=== PATIENT | female | born 1985 | race Two or more races ===

== ENCOUNTER → 2025-01-12 | Outpatient (CLI) | payer BC, SELFPAY ==
[2025-01-12 10:58] LABS: Basophils # (Auto) 0.1 Thou/mm3 (0.0-0.2); Basophils % (Auto) 1 % (0-2.5); Eosinophils # (Auto) 0.2 Thou/mm3 (0.0-0.5); Eosinophils % (Auto) 3 % (0-10); Hematocrit 36.9 % (36.0-46.0); Hemoglobin 12.6 g/dL (12.0-16.0); Immature Granulocytes % (Auto) 0 % (0-0); Immature Granulocytes Auto 0.02 Thou/mm3 (0.00-0.00); Lymphocytes # (Auto) 2.3 Thou/mm3 (1.0-4.8); Lymphocytes % (Auto) 31 % (10-50); Mean Corpuscular HGB Conc 34.1 g/dl (31.0-37.0); Mean Corpuscular Hemoglobin 32.1 pg (25.0-35.0); Mean Corpuscular Volume 94 fL (80-100); Monocytes # (Auto) 0.4 Thou/mm3 (0.0-0.8); Monocytes % (Auto) 6 % (0-12); Neutrophils # (Auto) 4.4 Thou/mm3 (1.8-7.7); Neutrophils % (Auto) 59 % (37-80); Nucleated Red Blood Cell % 0 /100 WBC (0); Platelet Count 222 Thou/mm3 (140-440); RDW Standard Deviation 41.5 fL (36.4-46.3); Red Blood Count 3.93 Miln/mm3 (4.00-5.20); White Blood Count 7.4 Thou/mm3 (3.6-11.0)
[2025-01-12 11:32] LABS: Glucose Estimated Average 94 mg/dL (80-131); Hemoglobin A1C 4.9 % Hgb (4.8-6.0)
[2025-01-12 11:53] LABS: Alanine Aminotransferase 22 U/L (10-49); Albumin, Serum 4.4 gm/dL (3.5-5.0); Albumin/Globulin Ratio 1.9 (1.2-2.2); Alkaline Phosphatase 59 U/L (46-116); Anion Gap 8 (7-16); Aspartate Amino Transferase 21 U/L (0-34); BUN/Creatinine Ratio 19 Ratio (12-20); Bilirubin,Total 0.7 mg/dL (0.3-1.2); Blood Urea Nitrogen 17 mg/dL (9-23); Calcium 9.7 mg/dL (8.3-10.6); Calcium (Corrected) 9.7 mg/dL (8.5-10.1); Carbon Dioxide 29.3 mMol/L (20.0-31.0); Chloride 105 mMol/L (98-107); Cholesterol 199 mg/dL (132-200); Creatinine (Component) 0.9 mg/dL (0.6-1.3); Globulin 2.3 gm/dL (2.3-3.5); Glucose 90 mg/dL (74-106); HDL Cholesterol 66 mg/dL (40-60); LDL Cholesterol,Calculated 115 mg/dL (0-130); Osmolality,Calculated 284 (275-295); Potassium 3.9 mMol/L (3.4-5.1); Sodium 142 mMol/L (136-145); Total Protein 6.7 gm/dL (5.7-8.2); Triglycerides 88 mg/dL (30-150); eGFR > 60 See Note
[2025-01-12 11:56] LABS: Vitamin D 25 Hydroxy Total 37.7 ng/mL (7.3-40.2)
== END | disposition home or self-care (01) ==
LOC: COPL 10:00
PROVIDERS: PCP Internal Medicine; Referring Provider Internal Medicine; Visit Provider Internal Medicine
DX: J30.9 Allergic rhinitis, unspecified (principal); Z83.3 Family history of diabetes mellitus; Z82.49 Family history of ischemic heart disease and other diseases of the circulatory system
CPT/HCPCS: 36415; 80053; 80061; 82306; 83036; 85025

== ENCOUNTER 2025-04-24 11:28 | Outpatient (AMB) | payer BC, SELFPAY ==
--- NOTE | 2025-04-24 11:35 | AMB.OBINITIA ---
Vital Signs 04/24/25 11:45 Height 1.68 m Height Method Stated Weight 78.528 kg Weight Measurement Method Standing Scale BMI 27.9 BP 115/72 Blood Pressure Source Automatic Cuff Blood Pressure Location Right Upper Arm Position Sitting Respiration 17 Pulse 72 Pulse Source Monitor Temp 97.7 F Temp Source Temporal Artery Scan Pulse Oximetry (%) 98 Oxygen Delivery Method Room Air Allergies/Home Meds Allergies & Medications Allergies No Known Allergies Allergy (Verified 04/24/25 11:39) Medication Reconciliation doxylamine 10 mg-pyridoxine (vit B6) 10 mg tablet,delayed release (Diclegis) 1 tab PO BID 30 days #60 tabs 04/24/25 [Rx] Intake Visit Data Collection New Patient or Established: New Patient (never been to [facility]) Reason for Visit:: OBI Seen by Clinical Staff ONLY (RN/MA): No Associate Merchant Required: No Do You Feel Safe at Home: Yes Authorities Contacted: N/A PCP or OBGYN visit in last 3 months: No Hx Now: Yes Are you currently on any form of Control: No Pain Present Currently: No Pain Scale Used: Hill-Gallagher/Numerical Pain scale:: 0 Smoking Status Smoking Status: Never smoker Questionnaires Covid-19 Vaccine Questionnaire Has patient been vacinated for Covid-19 Have you been vacinated for Covid-19: Yes PHQ-9 PHQ-2 Over the last 2 weeks, how often have you been bothered by any of the following problems? 1. Little interest or pleasure in doing things: not at all 2. Feeling down, depressed, or hopeless: not at all Total score: 0 PHQ-9 3. Trouble falling or staying asleep, or sleeping too much: Not at all 4. Feeling tired or having little energy: Not at all 5. Poor appetite or overeating: Not at all 6. Feeling bad about yourself - or that you are a failure or have let yourself or your family down: Not at all 7. Trouble concentrating on things, such as reading the newspaper or watching television: Not at all 8. Moving or speaking so slowly that other people could have noticed? - Or the opposite - being so fidgety or restless that you have been moving around a lot more than usual: not at all 9. Thoughts that you would be better off or of hurting yourself in some way: Not at all Total score: 0 If you checked off any problems, how difficult have these problems made it for you to do your work, take care of things at home, or get along with other people?: not difficult at all Source: Developed by Drs. Jaspal Samuels, Nel Ho, Angel Louise and colleagues, with an educational jean-pierre from [employer]. Depression screen completed yes Social History Living Situation History Marital Status: Life Partner Lives With: Spouse Housing: House Tobacco History Smoking Status: Never smoker Alcohol History Alcohol Intake: Former Alcohol Intake Frequency: holidays/special occasions only Domestic Abuse History Do You Feel Safe at Home: Yes History of Present Illness HPI Narrative 39 yo for OBI. LMP 02/19/25. EDC 11/28/25. IUP 9w1. sure dates. HIstory oa asthma. uses MDI. patient sees Dr Pendleton for asthma. . denies social habit. lap cholecystectomy 2021. denies any SAB symptoms. happy about . planned , FOB involved. FOB is 49 yo. 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 planned . denies SAB symptoms. + for AMA and advanced paternal age. c/o nausea, tired, no vag bleeding start diclegesis today. discomfort measure for nausea. discuss sab precaution. OB panel, NIPT and carrier screen, schedule MFM NT and anatomy screen. OBC 4 week start diclegesis today. discomfort measure for nausea. discuss sab precaution. OB panel, NIPT and carrier screen, schedule MFM NT and anatomy screen. OBC 4 week. start baby aspirin nv Menstrual History Menstrual reliability: definite Flow: normal Menstrual regularity: regular Monthly: Yes Age at menarche: 14 On control pills at conception: No OB History : 2 Para: 1 # of Living Children: 1 Delivery History 1st : Child's name: ELVA VALE date: 12/18/19 sex: female Gestational age at delivery (weeks): 39 Delivery type: vaginal weight (lbs): 3628.739 g History of depression before or after : No Infection History & Risk Evaluation History of STDs: none HIV risk evaluation: low risk Hepatitis B risk evaluation: low risk Patient or partner has history of Genital Herpes: Yes Varicella/chicken pox status: immunized Genetic Screening & History Genetic Screening/Teratology Counseling - Includes patient, baby's father, or anyone in either family with: 1. Patient's age 35 years or older as of estimated date of delivery: Yes 2. Thalassemia (Danish, [place]inean, Mediterranean, or Background); MCV less than 80: No 3. Neural Tube Defect (Meningomyelocele, Spina Bifida, or Anencephaly): No 4. Congenital Heart Defect: Yes 5. Down Syndrome: No 6. Irineo-Sachs (Ashkenazi Pentecostalism, Cajun, Sami Slovak): No 7. Diandra Disease (Ashkenazi Pentecostalism): No 8. Familial Dysautonomia (Ashkenazi Pentecostalism): No 9. Sickle Cell Disease or Trait (): No 10. Hemophilia or other blood disorders: No 11. Muscular Dystrophy: No 12. Cystic Fibrosis: No 13. Lycoming's Chorea: No 14. Mental Retardation/Autism: No 15. Other inherited genetic or chromosomal disorder: No 16. Maternal Metabolic Disorder (EG,TYPE 1 Diabetes, PKU): No 17. Patient or baby's father had a child with defects not listed above: No 18. Recurrent loss or a stillbirth: No 19. Medications (including supplements, vitamins, herbs or otc drugs)/illicit/recreational drugs/alcohol since last menstrual period: No 20. Any other: No Infection History 1. Live with someone with TB or exposed to TB: No 2. Rash or viral illness since last menstrual period: No 3. Hepatitis B,C: No Other (see comments) Source: [employer] Review of Systems Review of Systems Systems Reviewed: All systems reviewed, normal except as documented Exam General Limitations: no limitations General Appearance: alert, in no apparent distress, comfortable, cooperative, healthy appearing, well developed and well groomed Head Head exam: atraumatic, normocephalic and normal inspection Resp Respiratory exam: Present normal lung sounds bilaterally Card Cardiovascular exam: Present regular rate, normal rhythm and normal heart sounds Abdominal Abdominal exam: Present soft and normal bowel sounds Psych Psychiatric exam: Present normal affect and normal mood Office Procedures OB Clinic LOC & Office Proc's Nursing/Assessment Patient Status: Initial/New Patient OB Clinic Nursing Assessment: Medication Reconciliation, Update PMH in EMR and Vital Signs OB Clinic Coordination of Care: Complex Care and Chronic Disease 1-5, Consent,records obtained, informed consent, Education Simp Pt/Fam, Lab and Imaging orders and Staff clarify orders Special Needs: Heart tones New Patient Charge New Patient Point Assignment: [id number] New Patient Point Charge: OUTSIDE OPERATOR Level 4 ([id number]) Assessment & Plan Diagnosis / Problem List (1) Advanced maternal age (AMA) in : Status: Acute (2) Encounter for supervision of high risk in first trimester, antepartum: Status: Acute Plan discuss sab precaution, start Diclegesis bid, discuss comfort measure for nausea, hydrate. OB panel today, NIPT and carrier screen, discuss cost with patient, sched NT scan abd anatomy scan, start baby aspirin NV Additional Plan Follow Up: 4 Weeks (obc)
[2025-04-24 11:45] VITALS: BP 115/72; PULSE 72; RESP 17; TEMP 36.5; O2SAT 98; BMI 27.9
== END 2025-04-24 12:03 | disposition home or self-care (01) ==
LOC: HODSOBC 11:28
PROVIDERS: PCP Family Medicine; Referring Provider Family Medicine; Supervising Provider Advanced Practice Midwife; Visit Provider Advanced Practice Midwife
DX: O09.521 Supervision of elderly multigravida, first trimester (principal); Z3A.09 9 weeks gestation of pregnancy
CPT/HCPCS: 99204; G0463

== ENCOUNTER → 2025-04-24 | Outpatient (CLI) | payer BC, SELFPAY ==
[2025-04-24 13:22] LABS: Misc Send Out* See Sep Rpt
[2025-04-24 13:29] LABS: Collection Type, Urine Clean Catch; WBC,Urine 0 /hpf (0-5)
[2025-04-24 13:52] LABS: Basophils % (Auto) 0 % (0-2.5); Eosinophils # (Auto) 0.1 Thou/mm3 (0.0-0.5); Eosinophils % (Auto) 1 % (0-10); Hematocrit 32.8 % (36.0-46.0); Hemoglobin 11.6 g/dL (12.0-16.0); Immature Granulocytes % (Auto) 0 % (0-0); Immature Granulocytes Auto 0.02 Thou/mm3 (0.00-0.00); Lymphocytes # (Auto) 1.8 Thou/mm3 (1.0-4.8); Lymphocytes % (Auto) 19 % (10-50); Mean Corpuscular HGB Conc 35.4 g/dl (31.0-37.0); Mean Corpuscular Hemoglobin 33.3 pg (25.0-35.0); Mean Corpuscular Volume 94 fL (80-100); Monocytes # (Auto) 0.4 Thou/mm3 (0.0-0.8); Monocytes % (Auto) 5 % (0-12); Neutrophils % (Auto) 75 % (37-80); Nucleated Red Blood Cell % 0 /100 WBC (0); Platelet Count 187 Thou/mm3 (140-440); RDW Standard Deviation 43.4 fL (36.4-46.3); Red Blood Count 3.48 Miln/mm3 (4.00-5.20); White Blood Count 9.4 Thou/mm3 (3.6-11.0)
[2025-04-24 14:00] LABS: Glucose Estimated Average 91 mg/dL (80-131); Hemoglobin A1C 4.8 % Hgb (4.8-6.0)
[2025-04-24 14:09] LABS: Bacteria,Urine Rare; Bilirubin,Urine Negative (Negative); Blood,Urine Negative (Negative); Clarity,Urine Clear (Clear/Hazy); Color,Urine Colorless (Lt Yel-Yel); Culture Indicated,Urine Not Indicated; Glucose, Urine Negative (Negative); Ketones,Urine Negative (Negative); Leukocyte Esterase,Urine Negative (Negative); Nitrite,Urine Negative (Negative); Protein,Urine Negative (Neg - Trace); RBC,Urine 1 /hpf (0-3); Specific Gravity,Urine 1.008 (1.001-1.035); Squamous Epithelial Cell,Urine 1 /hpf (0-5); Urobilinogen,Urine Negative mg/dL (0.0-1.0)
[2025-04-24 14:29] LABS: Syphilis Nonreactive (Nonreactive)
[2025-04-24 14:47] LABS: Hepatitis B Surface Antigen Non Reactive (Non React); Hepatitis C Antibody Non Reactive (Non React); Rubella, IgG Antibody Reactive (Immune)
[2025-04-24 16:08] LABS: Chlamydia trachomatis PCR Negative (Not Detect); Neisseria Gonorrhoeae DNA PCR Negative (Not Detect); Trichomonas Negative (Negative)
[2025-05-01 06:54] LABS: Sm Antibody* <1.0 NEG AI (<1.0 NEGATIVE)
== END | disposition home or self-care (01) ==
PROVIDERS: PCP Family Medicine; Referring Provider Advanced Practice Midwife; Visit Provider Advanced Practice Midwife
DX: Z01.89 Encounter for other specified special examinations (principal)
CPT/HCPCS: 36415; 81001; 83036; 85025; 86235; 86762; 86780; 86803; 86850; 86900; 86901; 87340; 87491; 87591; 87661

== ENCOUNTER 2025-05-24 15:24 | Outpatient (AMB) | payer BC, SELFPAY ==
[2025-05-24 15:38] VITALS: BP 120/70; PULSE 81; RESP 16; TEMP 36.8; O2SAT 98; BMI 28.6
--- NOTE | 2025-05-24 15:38 | OBCLNT_ITS ---
Vital Signs 05/24/25 15:38 Height 1.68 m Height Method Stated Weight 80.796 kg Weight Measurement Method Standing Scale BMI 28.6 BP 120/70 Blood Pressure Source Automatic Cuff Blood Pressure Location Left Upper Arm Position Sitting Respiration 16 Pulse 81 Pulse Source Monitor Temp 98.2 F Temp Source Oral Pulse Oximetry (%) 98 Oxygen Delivery Method Room Air Allergies/Home Meds Allergies & Medications Allergies No Known Allergies Allergy (Verified 05/24/25 15:39) Medication Reconciliation doxylamine 10 mg-pyridoxine (vit B6) 10 mg tablet,delayed release (Diclegis) 1 tab PO BID 30 days #60 tabs 04/24/25 [Rx Confirmed 05/24/25] ascorbic acid (vitamin C) 1,000 mg capsule 1,000 mg PO BID #60 caps 05/24/25 [Rx] ferrous sulfate 325 mg (65 mg iron) tablet 325 mg PO BID #60 tabs 05/24/25 [Rx] Intake Visit Data Collection New Patient or Established: Established Patient (seen at [facility] within 3 years) Reason for Visit:: CARE Seen by Clinical Staff ONLY (RN/MA): No Chemical Project Engineer Required: No Do You Feel Safe at Home: Yes Authorities Contacted: N/A PCP or OBGYN visit in last 3 months: Yes Hx Now: Yes Are you currently on any form of Control: No Pain Present Currently: No Pain Scale Used: Hill-Gallagher/Numerical Pain scale:: 0 Smoking Status Smoking Status: Never smoker Questionnaires Covid-19 Vaccine Questionnaire Has patient been vacinated for Covid-19 Have you been vacinated for Covid-19: Yes PHQ-9 PHQ-2 Over the last 2 weeks, how often have you been bothered by any of the following problems? 1. Little interest or pleasure in doing things: not at all 2. Feeling down, depressed, or hopeless: not at all Total score: 0 PHQ-9 3. Trouble falling or staying asleep, or sleeping too much: Not at all 4. Feeling tired or having little energy: Not at all 5. Poor appetite or overeating: Not at all 6. Feeling bad about yourself - or that you are a failure or have let yourself or your family down: Not at all 7. Trouble concentrating on things, such as reading the newspaper or watching television: Not at all 8. Moving or speaking so slowly that other people could have noticed? - Or the opposite - being so fidgety or restless that you have been moving around a lot more than usual: not at all 9. Thoughts that you would be better off or of hurting yourself in some way: Not at all Total score: 0 Source: Developed by Drs. Jaspal Samuels, Nel Ho, Angel Louise and colleagues, with an educational jean-pierre from [employer]. Depression screen completed yes Social History Living Situation History Lives With: Spouse Housing: House Tobacco History Smoking Status: Never smoker Alcohol History Alcohol Intake: Former Alcohol Intake Frequency: holidays/special occasions only Domestic Abuse History Do You Feel Safe at Home: Yes Care OB Visit Log OB Flowsheet Initial Weight: Not Recorded Date -?-?-?-?-?-?-?-?-?-?-?-?- EGA Weight BP Alb Glu CTX Pres Fundal ht FHR Mov Dilation Station Effacement Hx Notes Visit Note 04/24/25 -?-?-?-?-?-?-?-?-?-?-?-?- 9w 1d 78.528 kg 115/72 absent unknown 9 145 absent 39 yo . planned . denies SAB symptoms. + for AMA and advanced paternal age. c/o nausea, tired, no vag bleeding start diclegesis today. discomfort measure for nausea. discuss sab precaution. OB panel, NIPT and carrier screen, schedule MFM NT and anatomy screen. OBC 4 week start diclegesis today. disc omfort measure for nausea. discuss sab precaution. OB panel, NIPT and carrier screen, schedule MFM NT and anatomy screen. OBC 4 week. start baby aspirin nv 05/24/25 -?-?-?-?-?-?-?-?-?-?-?-?- 13w 3d 80.796 kg 120/70 absent unknown 13 156 absent feels tired. history of anemia, take iron 1 daily. no sab complaints. mfm appt, 07/04 discuss sab p recaution. start iron bid with vitamin c, consider IV iron 2nd trimester, keep mfm appt 07/04. increase fluid, rtc 4 week obc ARNEL Calculator Estimated Delivery Date Method Current WG Current Estimate 11/26/25 LMP (Certain) 13w 3d Notes Visit Date: 05/24/25 Last Updated by: Nathalie Mishra CNM ob panel: AB+,abs-, rpr;;nr, rub imm, hbsag-,hiv-,hc-, GC/CT-. nipt-,sma/cf- Visit Date: 04/24/25 Last Updated by: Nathalie Mishra CNM 39 yo . LMP: 02/19/25. EDC 11/28/25 Office Procedures OB Clinic LOC & Office Proc's Nursing/Assessment Patient Status: Established Patient OB Clinic Nursing Assessment: Medication Reconciliation, Update PMH in EMR and Vital Signs OB Clinic Coordination of Care: AMA, Complex Care and Chronic Disease 1-5, Consent,records obtained, informed consent, Education Simp Pt/Fam, Lab and Imaging orders, Results/Orders obtained and Staff clarify orders Special Needs: Heart tones Established Patient Charge Established Patient Point Assignment: 155 Established Patient Point Charge: EP Level 4 (120-155) Assessment & Plan Diagnosis / Problem List (1) Encounter for supervision of high risk in first trimester, antepartum: Status: Acute (2) Advanced maternal age (AMA) in : Status: Acute Plan discuss sab precaution, hydrate, increase iron bid, start vitamin c with iron, increase iron food. keep mfm appt 07/04. rtc 4 week obc Additional Plan Follow Up: 4 Weeks (obc)
== END 2025-05-24 15:51 | disposition home or self-care (01) ==
LOC: HODSOBC 15:24
PROVIDERS: PCP Advanced Practice Midwife; Referring Provider Advanced Practice Midwife; Supervising Provider Advanced Practice Midwife; Visit Provider Advanced Practice Midwife
DX: O09.521 Supervision of elderly multigravida, first trimester (principal); O09.891 Supervision of other high risk pregnancies, first trimester; O99.011 Anemia complicating pregnancy, first trimester; Z3A.13 13 weeks gestation of pregnancy
CPT/HCPCS: 99214; G0463

== ENCOUNTER 2025-06-16 13:28 | Outpatient (AMB) | payer BC, SELFPAY ==
[2025-06-16 13:39] VITALS: BP 107/69; PULSE 80; RESP 17; TEMP 36.4; O2SAT 98; BMI 28.8
--- NOTE | 2025-06-16 13:39 | AMB.OBVISIT ---
Vital Signs 06/16/25 13:39 Height 1.68 m Height Method Measured Weight 81.42 kg Weight Measurement Method Standing Scale BMI 28.8 BP 107/69 Blood Pressure Source Automatic Cuff Blood Pressure Location Right Upper Arm Position Sitting Respiration 17 Pulse 80 Pulse Source Monitor Temp 97.6 F Temp Source Temporal Artery Scan Pulse Oximetry (%) 98 Oxygen Delivery Method Room Air Allergies/Home Meds Allergies & Medications Allergies No Known Allergies Allergy (Verified 06/16/25 13:40) Medication Reconciliation doxylamine 10 mg-pyridoxine (vit B6) 10 mg tablet,delayed release (Diclegis) 1 tab PO BID 30 days #60 tabs 04/24/25 [Rx Confirmed 06/16/25] ascorbic acid (vitamin C) 1,000 mg capsule 1,000 mg PO BID #60 caps 05/24/25 [Rx Confirmed 06/16/25] ferrous sulfate 325 mg (65 mg iron) tablet 325 mg PO BID #60 tabs 05/24/25 [Rx Confirmed 06/16/25] Intake Visit Data Collection New Patient or Established: Established Patient (seen at [facility] within 3 years) Reason for Visit:: OBC Consent obtained for Telemed Visit: No Seen by Clinical Staff ONLY (RN/MA): No Financial Analyst Intern Required: No Do You Feel Safe at Home: Yes Authorities Contacted: N/A PCP or OBGYN visit in last 3 months: Yes Date of Last PCP or OBGYN visit: 05/24/25 Hx Now: Yes Are you currently on any form of Control: No Pain Present Currently: No Pain Scale Used: Hill-Gallagher/Numerical Pain scale:: 0 Smoking Status Smoking Status: Never smoker Questionnaires Covid-19 Vaccine Questionnaire Has patient been vacinated for Covid-19 Have you been vacinated for Covid-19: No PHQ-9 PHQ-2 Over the last 2 weeks, how often have you been bothered by any of the following problems? 1. Little interest or pleasure in doing things: not at all PHQ-9 8. Moving or speaking so slowly that other people could have noticed? - Or the opposite - being so fidgety or restless that you have been moving around a lot more than usual: not at all Source: Developed by Drs. Jaspal Samuels, Nel Ho, Angel Louise and colleagues, with an educational jean-pierre from [employer]. Social History Living Situation History Lives With: Spouse Housing: House Tobacco History Smoking Status: Never smoker Alcohol History Alcohol Intake: Former Alcohol Intake Frequency: holidays/special occasions only Domestic Abuse History Do You Feel Safe at Home: Yes Care OB Visit Log OB Flowsheet Initial Weight: Not Recorded Date <del>?</del> EGA Weight BP Alb Glu CTX Pres Fundal ht FHR Mov Dilation Station Effacement Hx Notes Visit Note 04/24/25 <del>?</del> 9w 1d 78.528 kg 115/72 absent unknown 9 145 absent 39 yo . planned . denies SAB symptoms. + for AMA and advanced paternal age. c/o nausea, tired, no vag bleeding start diclegesis today. discomfort measure for nausea. discuss sab precaution. OB panel, NIPT and carrier screen, schedule MFM NT and anatomy screen. OBC 4 week start diclegesis today. discomfort measure for nausea. discuss sab precaution. OB panel, NIPT and carrier screen, schedule MFM NT and anatomy screen. OBC 4 week. start baby aspirin nv 05/24/25 <del>?</del> 13w 3d 80.796 kg 120/70 absent unknown 13 156 absent feels tired. history of anemia, take iron 1 daily. no sab complaints. mfm appt, 07/04 discuss sab precaution. start iron bid with vitamin c, consider IV iron 2nd trimester, keep mfm appt 07/04. increase fluid, rtc 4 week obc 06/16/25 <del>?</del> 16w 5d 81.42 kg 107/69 absent unknown 16 147 absent last herpes outbreak 04/02. light fm, no VB,No ROM, NO bleeding. no active lesion. question about herpes. mfm 07/04 discuss +CF screen, schedule genetic screen, advised FOB to get CF screen, start acyclovir at 36 week. vitamin C,Lysine and zinc to prevent outbreaks, discuss safe sex. patient will do AFP after insurance approval ARNEL Calculator Estimated Delivery Date Method Current WG Current Estimate 11/26/25 LMP (Certain) 16w 5d Notes Visit Date: 05/24/25 Last Updated by: Nathalie Mishra CNM ob panel: AB+,abs-, rpr;;nr, rub imm, hbsag-,hiv-,hc-, GC/CT-. nipt-,sma/cf- Visit Date: 04/24/25 Last Updated by: Nathalie Mishra CNM 39 yo . LMP: 02/19/25. EDC 11/28/25 Office Procedures OB Clinic LOC & Office Proc's Nursing/Assessment Patient Status: Established Patient OB Clinic Nursing Assessment: Medication Reconciliation, Update PMH in EMR and Vital Signs OB Clinic Coordination of Care: Complex Care and Chronic Disease 1-5, Consent,records obtained, informed consent, Education Simp Pt/Fam and Results/Orders obtained Special Needs: Heart tones Established Patient Charge Established Patient Point Assignment: 110 Established Patient Point Charge: EP Level 3 (80-115) Assessment & Plan Diagnosis / Problem List (1) Encounter for supervision of high risk in second trimester, antepartum: Status: Acute (2) Advanced maternal age (AMA) in : Status: Acute Plan Discussed cystic fibrosis positive screen today made a referral for genetics to [facility] for positive cystic fibrosis screen and advanced maternal age. I discussed comfort measures for herpes outbreak. Will start valacyclovir 400 daily at 36 weeks. Patient can take vitamin C at thousand, lysine at thousand and zinc 50 twice a day for prophylaxis. Continue prenatals. I advised patient to have her partner get screened for cystic fibrosis. Return in 4 weeks OB check
== END 2025-06-16 15:23 | disposition home or self-care (01) ==
LOC: HODSOBC 13:28
PROVIDERS: Supervising Provider Advanced Practice Midwife; Visit Provider Advanced Practice Midwife
DX: O09.522 Supervision of elderly multigravida, second trimester (principal); Z3A.16 16 weeks gestation of pregnancy; O09.892 Supervision of other high risk pregnancies, second trimester; O98.512 Other viral diseases complicating pregnancy, second trimester; B00.9 Herpesviral infection, unspecified
CPT/HCPCS: 99213; G0463

== ENCOUNTER 2025-07-24 11:06 | Outpatient (AMB) | payer BC, SELFPAY ==
[2025-07-24 11:22] VITALS: BP 103/65; PULSE 85; RESP 17; TEMP 36.4; O2SAT 98; BMI 30.2
--- NOTE | 2025-07-24 11:22 | AMB.OBVISIT ---
Vital Signs 07/24/25 11:22 Height 1.68 m Height Method Stated Weight 84.935 kg Weight Measurement Method Standing Scale BMI 30.2 BP 103/65 Blood Pressure Source Automatic Cuff Blood Pressure Location Left Upper Arm Position Sitting Respiration 17 Pulse 85 Pulse Source Monitor Temp 97.6 F Temp Source Temporal Artery Scan Pulse Oximetry (%) 98 Oxygen Delivery Method Room Air Allergies/Home Meds Allergies & Medications Allergies No Known Allergies Allergy (Verified 07/24/25 11:23) Medication Reconciliation doxylamine 10 mg-pyridoxine (vit B6) 10 mg tablet,delayed release (Diclegis) 1 tab PO BID 30 days #60 tabs 04/24/25 [Rx Confirmed 07/24/25] ascorbic acid (vitamin C) 1,000 mg capsule 1,000 mg PO BID #60 caps 05/24/25 [Rx Confirmed 07/24/25] ferrous sulfate 325 mg (65 mg iron) tablet 325 mg PO BID #60 tabs 05/24/25 [Rx Confirmed 07/24/25] Intake Visit Data Collection New Patient or Established: Established Patient (seen at [facility] within 3 years) Reason for Visit:: OBC Seen by Clinical Staff ONLY (RN/MA): No Distributor Advertising Material Required: No Do You Feel Safe at Home: Yes Authorities Contacted: N/A PCP or OBGYN visit in last 3 months: Yes Date of Last PCP or OBGYN visit: 06/16/25 Hx Now: Yes Are you currently on any form of Control: No Pain Present Currently: No Pain Scale Used: Hill-Gallagher/Numerical Pain scale:: 0 Smoking Status Smoking Status: Never smoker Questionnaires Covid-19 Vaccine Questionnaire Has patient been vacinated for Covid-19 Have you been vacinated for Covid-19: Yes PHQ-9 PHQ-2 Over the last 2 weeks, how often have you been bothered by any of the following problems? 1. Little interest or pleasure in doing things: not at all 2. Feeling down, depressed, or hopeless: not at all Total score: 0 PHQ-9 3. Trouble falling or staying asleep, or sleeping too much: Not at all 4. Feeling tired or having little energy: Not at all 5. Poor appetite or overeating: Not at all 6. Feeling bad about yourself - or that you are a failure or have let yourself or your family down: Not at all 7. Trouble concentrating on things, such as reading the newspaper or watching television: Not at all 8. Moving or speaking so slowly that other people could have noticed? - Or the opposite - being so fidgety or restless that you have been moving around a lot more than usual: not at all 9. Thoughts that you would be better off or of hurting yourself in some way: Not at all Total score: 0 If you checked off any problems, how difficult have these problems made it for you to do your work, take care of things at home, or get along with other people?: not difficult at all Source: Developed by Drs. Jaspal Samuels, Nel Ho, Angel Louise and colleagues, with an educational jean-pierre from [employer]. Depression screen completed yes Social History Living Situation History Marital Status: Lives With: Spouse Housing: House Tobacco History Smoking Status: Never smoker Second Hand Smoke Exposure: No Alcohol History Alcohol Intake: Former Alcohol Intake Frequency: holidays/special occasions only Domestic Abuse History Do You Feel Safe at Home: Yes Care OB Visit Log OB Flowsheet Initial Weight: Not Recorded Date <del>?</del> EGA Weight BP Alb Glu CTX Pres Fundal ht FHR Mov Dilation Station Effacement Hx Notes Visit Note 04/24/25 <del>?</del> 9w 1d 78.528 kg 115/72 absent unknown 9 145 absent 39 yo . planned . denies SAB symptoms. + for AMA and advanced paternal age. c/o nausea, tired, no vag bleeding start diclegesis today. discomfort measure for nausea. discuss sab precaution. OB panel, NIPT and carrier screen, schedule MFM NT and anatomy screen. OBC 4 week start diclegesis today. discomfort measure for nausea. discuss sab precaution. OB panel, NIPT and carrier screen, schedule MFM NT and anatomy screen. OBC 4 week. start baby aspirin nv 05/24/25 <del>?</del> 13w 3d 80.796 kg 120/70 absent unknown 13 156 absent feels tired. history of anemia, take iron 1 daily. no sab complaints. [facility] appt, 07/04 discuss sab precaution. start iron bid with vitamin c, consider IV iron 2nd trimester, keep [facility] appt 07/04. increase fluid, rtc 4 week obc 06/16/25 <del>?</del> 16w 5d 81.42 kg 107/69 absent unknown 16 147 absent last herpes outbreak 04/02. light fm, no VB,No ROM, NO bleeding. no active lesion. question about herpes. [facility] 07/04 discuss +CF screen, schedule genetic screen, advised FOB to get CF screen, start acyclovir at 36 week. vitamin C,Lysine and zinc to prevent outbreaks, discuss safe sex. patient will do AFP after insurance approval 07/24/25 <del>?</del> 22w 1d 84.935 kg 103/65 absent unknown 22 145 active Patient has concerns about driving 5 hours in 1 day. She reports that she drives back and forth to [place] once a month for her child to see her father. She reports that during this time she has increased back strain and tiredness because of the drive. Reports movement. Denies leaking or bleeding. No contractions at this time but she does have second trimester discomforts. Her asthma is stable and she will continue with Claudette and her Singulair. Start acyclovir at 32 weeks. Discussed comfort measures with patient. And I discussed self-help tips. Continue Claudette and Singulair for her asthma. Discussed sugary foods and sweets, diet and regular exercise. Patient has a follow-up ultrasound for growth in August. Discussed labor precautions. And third trimester labs next visit. Return in 4 weeks OB check ARNEL Calculator Estimated Delivery Date Method Current WG Current Estimate 11/26/25 Manual 22w 1d final ARNEL: 11/26/25. EFW >99% Other Estimates 11/26/25 LMP (Certain) 22w 1d 11/26/25 Ultrasound #1 22w 1d Notes Visit Date: 07/24/25 Last Updated by: Nathalie Mishra CNM 07/24: FOB screen neg for cystic fibrosis carrier 07/24: Asthma, continue Singular and Claudette Visit Date: 05/24/25 Last Updated by: Nathalie Mishra CNM ob panel: AB+,abs-, rpr;;nr, rub imm, hbsag-,hiv-,hc-, GC/CT-. nipt-,sma/cf- Visit Date: 04/24/25 Last Updated by: Nathalie Mishra CNM 39 yo . LMP: 02/19/25. EDC 11/28/25 Office Procedures OB Clinic LOC & Office Proc's Nursing/Assessment Patient Status: Established Patient OB Clinic Nursing Assessment: Medication Reconciliation, Update PMH in EMR and Vital Signs OB Clinic Coordination of Care: Complex Care and Chronic Disease 1-5, Consent,records obtained, informed consent, Education Simp Pt/Fam and Staff clarify orders Special Needs: Heart tones Established Patient Charge Established Patient Point Assignment: 115 Established Patient Point Charge: EP Level 3 (80-115) Assessment & Plan Diagnosis / Problem List (1) Advanced maternal age (AMA) in : Status: Acute (2) Encounter for supervision of high risk in second trimester, antepartum: Status: Acute Plan Follow-up growth sono in September with MFM. Discussed diet and weight gain. Increase activity. Discussed decreasing sugar and sweet foods. Comfort measures for low backache especially when driving prolonged hours. Third trimester labs next visit Additional Plan Follow Up: 4 Weeks (obc)
== END 2025-07-24 11:48 | disposition home or self-care (01) ==
LOC: HODSOBC 11:06
PROVIDERS: Supervising Provider Advanced Practice Midwife; Visit Provider Advanced Practice Midwife
DX: O09.522 Supervision of elderly multigravida, second trimester (principal); O09.892 Supervision of other high risk pregnancies, second trimester; O99.512 Diseases of the respiratory system complicating pregnancy, second trimester; J45.909 Unspecified asthma, uncomplicated; O99.891 Other specified diseases and conditions complicating pregnancy; M54.50 Low back pain, unspecified; Z3A.22 22 weeks gestation of pregnancy
CPT/HCPCS: 99213; G0463

== ENCOUNTER 2025-08-16 14:56 | Outpatient (AMB) | payer BC, SELFPAY ==
[2025-08-16 15:05] VITALS: BP 113/72; PULSE 80; RESP 16; TEMP 36.2; O2SAT 99; BMI 30.7
--- NOTE | 2025-08-16 15:05 | AMB.OBVISIT ---
Vital Signs 08/16/25 15:05 Height 1.68 m Height Method Stated Weight 86.636 kg Weight Measurement Method Standing Scale BMI 30.7 BP 113/72 Blood Pressure Source Automatic Cuff Blood Pressure Location Left Upper Arm Position Sitting Respiration 16 Pulse 80 Pulse Source Monitor Temp 97.2 F Temp Source Oral Pulse Oximetry (%) 99 Oxygen Delivery Method Room Air Allergies/Home Meds Allergies & Medications Allergies No Known Allergies Allergy (Verified 08/16/25 15:06) Medication Reconciliation doxylamine 10 mg-pyridoxine (vit B6) 10 mg tablet,delayed release (Diclegis) 1 tab PO BID 30 days #60 tabs 04/24/25 [Rx Confirmed 08/16/25] ascorbic acid (vitamin C) 1,000 mg capsule 1,000 mg PO BID #60 caps 05/24/25 [Rx Confirmed 08/16/25] ferrous sulfate 325 mg (65 mg iron) tablet 325 mg PO BID #60 tabs 05/24/25 [Rx Confirmed 08/16/25] Intake Visit Data Collection New Patient or Established: Established Patient (seen at [facility] within 3 years) Reason for Visit:: OBC Seen by Clinical Staff ONLY (RN/MA): No 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 1. Little interest or pleasure in doing things: not at all 2. Feeling down, depressed, or hopeless: not at all Total score: 0 PHQ-9 3. Trouble falling or staying asleep, or sleeping too much: Not at all 4. Feeling tired or having little energy: Not at all 5. Poor appetite or overeating: Not at all 6. Feeling bad about yourself - or that you are a failure or have let yourself or your family down: Not at all 7. Trouble concentrating on things, such as reading the newspaper or watching television: Not at all 8. Moving or speaking so slowly that other people could have noticed? - Or the opposite - being so fidgety or restless that you have been moving around a lot more than usual: not at all 9. Thoughts that you would be better off or of hurting yourself in some way: Not at all Total score: 0 If you checked off any problems, how difficult have these problems made it for you to do your work, take care of things at home, or get along with other people?: not difficult at all Source: Developed by Drs. Jaspal Samuesl, Nel Ho, Angel Louise and colleagues, with an educational jean-pierre from [employer]. Depression screen completed yes Social History Living Situation History Marital Status: Single Lives With: Spouse Housing: House Tobacco History Smoking Status: Never smoker Second Hand Smoke Exposure: No Alcohol History Alcohol Intake: Former Alcohol Intake Frequency: holidays/special occasions only Domestic Abuse History Do You Feel Safe at Home: Yes Care OB Visit Log OB Flowsheet Initial Weight: Not Recorded Date <del>?</del> EGA Weight BP Alb Glu CTX Pres Fundal ht FHR Mov Dilation Station Effacement Hx Notes Visit Note 04/24/25 <del>?</del> 9w 1d 78.528 kg 115/72 absent unknown 9 145 absent 39 yo . planned . denies SAB symptoms. + for AMA and advanced paternal age. c/o nausea, tired, no vag bleeding start diclegesis today. discomfort measure for nausea. discuss sab precaution. OB panel, NIPT and carrier screen, schedule MFM NT and anatomy screen. OBC 4 week start diclegesis today. discomfort measure for nausea. discuss sab precaution. OB panel, NIPT and carrier screen, schedule MFM NT and anatomy screen. OBC 4 week. start baby aspirin nv 05/24/25 <del>?</del> 13w 3d 80.796 kg 120/70 absent unknown 13 156 absent feels tired. history of anemia, take iron 1 daily. no sab complaints. [facility] appt, 07/04 discuss sab precaution. start iron bid with vitamin c, consider IV iron 2nd trimester, keep [facility] appt 07/04. increase fluid, rtc 4 week obc 06/16/25 <del>?</del> 16w 5d 81.42 kg 107/69 absent unknown 16 147 absent last herpes outbreak 04/02. light fm, no VB,No ROM, NO bleeding. no active lesion. question about herpes. [facility] 07/04 discuss +CF screen, schedule genetic screen, advised FOB to get CF screen, start acyclovir at 36 week. vitamin C,Lysine and zinc to prevent outbreaks, discuss safe sex. patient will do AFP after insurance approval 07/24/25 <del>?</del> 22w 1d 84.935 kg 103/65 absent unknown 22 145 active Patient has concerns about driving 5 hours in 1 day. She reports that she drives back and forth to [place] once a month for her child to see her father. She reports that during this time she has increased back strain and tiredness because of the drive. Reports movement. Denies leaking or bleeding. No contractions at this time but she does have second trimester discomforts. Her asthma is stable and she will continue with Claudette and her Singulair. Start acyclovir at 32 weeks. Discussed comfort measures with patient. And I discussed self-help tips. Continue Claudette and Singulair for her asthma. Discussed sugary foods and sweets, diet and regular exercise. Patient has a follow-up ultrasound for growth in August. Discussed labor precautions. And third trimester labs next visit. Return in 4 weeks OB check 08/16/25 <del>?</del> 25w 3d 86.636 kg 113/72 absent unknown 25 145 active Patient has concerns about her blood pressure. She feels funny sometimes lightheaded so she has been checking her blood pressure at home for the last 5 days and she is concerned that it is low. Reports good movement. Denies contractions, bleeding, leaking Discussed blood pressure with patient. Discussed parameters with patient. Discussed ER precautions. Discussed comfort measures for ligament pain. Third trimester labs with CMP and A1c. Patient has a follow-up with maternal- medicine 3. Return in 4 weeks OB check ARNEL Calculator Estimated Delivery Date Method Current WG Current Estimate 11/26/25 LMP (Certain) 25w 3d Other Estimates 11/26/25 Ultrasound #1 25w 3d 11/26/25 Manual 25w 3d final ARNEL: 11/26/25. EFW >99% Notes Visit Date: 07/24/25 Last Updated by: Nathalie Mishra CNM 07/24: FOB screen neg for cystic fibrosis carrier 07/24: Asthma, continue Singular and Claudette Visit Date: 05/24/25 Last Updated by: Nathalie Mishra CNM ob panel: AB+,abs-, rpr;;nr, rub imm, hbsag-,hiv-,hc-, GC/CT-. nipt-,sma/cf- Visit Date: 04/24/25 Last Updated by: Nathalie Mishra CNM 39 yo . LMP: 02/19/25. EDC 11/28/25 Office Procedures OBC Clinic LOC & Office Proc's Nursing/Assessment Patient Status: Established Patient OB Clinic Nursing Assessment: Medication Reconciliation, Update PMH in EMR and Vital Signs OB Clinic Coordination of Care: Education Complex Pt/Fam, Education Simp Pt/Fam, Lab and Imaging orders, Results/Orders obtained and Staff clarify orders Special Needs: Heart tones Established Patient Charge Established Patient Point Assignment: 125 Established Patient Point Charge: EP Level 4 (120-155) Assessment & Plan Diagnosis / Problem List (1) Encounter for supervision of high risk in second trimester, antepartum: Status: Acute Plan Follow-up [facility] appointment . Third trimester labs with CMP and CBC today. Discussed labor precautions. Increase fluids. Increase proteins. Discussed parameters for blood pressure and ER precautions. Return in 3 weeks OB check Additional Plan Follow Up: 3 Weeks (obc)
== END 2025-08-16 15:26 | disposition home or self-care (01) ==
LOC: HODSOBC 14:56
PROVIDERS: Supervising Provider Advanced Practice Midwife; Visit Provider Advanced Practice Midwife
DX: O09.522 Supervision of elderly multigravida, second trimester (principal); Z3A.25 25 weeks gestation of pregnancy
CPT/HCPCS: 99214; G0463

== ENCOUNTER → 2025-08-18 | Outpatient (CLI) | payer BC, SELFPAY ==
[2025-08-18 11:32] LABS: Basophils # (Auto) 0.0 Thou/mm3 (0.0-0.2); Basophils % (Auto) 0 % (0-2.5); Eosinophils # (Auto) 0.1 Thou/mm3 (0.0-0.5); Eosinophils % (Auto) 1 % (0-10); Hematocrit 31.5 % (36.0-46.0); Hemoglobin 10.8 g/dL (12.0-16.0); Immature Granulocytes Auto 0.06 Thou/mm3 (0.00-0.00); Lymphocytes # (Auto) 1.7 Thou/mm3 (1.0-4.8); Lymphocytes % (Auto) 22 % (10-50); Mean Corpuscular HGB Conc 34.3 g/dl (31.0-37.0); Mean Corpuscular Hemoglobin 33.5 pg (25.0-35.0); Mean Corpuscular Volume 98 fL (80-100); Monocytes # (Auto) 0.3 Thou/mm3 (0.0-0.8); Monocytes % (Auto) 4 % (0-12); Neutrophils # (Auto) 5.4 Thou/mm3 (1.8-7.7); Neutrophils % (Auto) 71 % (37-80); Nucleated Red Blood Cell # 0.00 Thou/mm3 (0.00-0.00); Nucleated Red Blood Cell % 0 /100 WBC (0); Platelet Count 200 Thou/mm3 (140-440); RDW Standard Deviation 43.1 fL (36.4-46.3); Red Blood Count 3.22 Miln/mm3 (4.00-5.20); White Blood Count 7.6 Thou/mm3 (3.6-11.0)
[2025-08-18 11:40] LABS: Glucose Estimated Average 91 mg/dL (80-131); Hemoglobin A1C 4.8 % Hgb (4.8-6.0)
[2025-08-18 11:53] LABS: Alanine Aminotransferase 10 U/L (10-49); Albumin, Serum 4.0 gm/dL (3.5-5.0); Albumin/Globulin Ratio 1.9 (1.2-2.2); Alkaline Phosphatase 54 U/L (46-116); Anion Gap 11 (7-16); Aspartate Amino Transferase 12 U/L (0-34); BUN/Creatinine Ratio 13 Ratio (12-20); Bilirubin,Total 0.5 mg/dL (0.3-1.2); Blood Urea Nitrogen 9 mg/dL (9-23); Calcium 9.2 mg/dL (8.3-10.6); Calcium (Corrected) 9.2 mg/dL (8.5-10.1); Carbon Dioxide 25.2 mMol/L (20.0-31.0); Chloride 105 mMol/L (98-107); Creatinine (Component) 0.7 mg/dL (0.6-1.3); Globulin 2.1 gm/dL (2.3-3.5); Glucose 151 mg/dL (74-106); Glucose,1 Hour PP 50gm Dose 151 mg/dL (80-140); Osmolality,Calculated 282 (275-295); Potassium 3.5 mMol/L (3.4-5.1); Sodium 141 mMol/L (136-145); Total Protein 6.1 gm/dL (5.7-8.2); eGFR > 60 See Note
[2025-08-18 12:01] LABS: Syphilis Nonreactive (Nonreactive)
== END | disposition home or self-care (01) ==
PROVIDERS: PCP Family Medicine; Referring Provider Advanced Practice Midwife; Visit Provider Advanced Practice Midwife
DX: Z34.92 Encounter for supervision of normal pregnancy, unspecified, second trimester (principal)
CPT/HCPCS: 36415; 80053; 82950; 83036; 85025; 86780

== ENCOUNTER 2025-09-12 14:29 | Outpatient (AMB) | payer BC, SELFPAY ==
[2025-09-12 14:40] VITALS: BP 115/70; PULSE 112; RESP 18; TEMP 36.2; O2SAT 98; BMI 31.4
--- NOTE | 2025-09-12 14:40 | AMB.OBVISIT ---
Vital Signs 09/12/25 14:40 Height 1.68 m Height Method Stated Weight 88.621 kg Weight Measurement Method Standing Scale BMI 31.4 BP 115/70 Blood Pressure Source Automatic Cuff Blood Pressure Location Left Upper Arm Position Sitting Respiration 18 Pulse 112 H Pulse Source Monitor Temp 97.2 F Temp Source Oral Pulse Oximetry (%) 98 Oxygen Delivery Method Room Air Allergies/Home Meds Allergies & Medications Allergies No Known Allergies Allergy (Verified 09/12/25 14:41) Medication Reconciliation doxylamine 10 mg-pyridoxine (vit B6) 10 mg tablet,delayed release (Diclegis) 1 tab PO BID 30 days #60 tabs 04/24/25 [Rx Confirmed 09/12/25] ascorbic acid (vitamin C) 1,000 mg capsule 1,000 mg PO BID #60 caps 05/24/25 [Rx Confirmed 09/12/25] ferrous sulfate 325 mg (65 mg iron) tablet 325 mg PO BID #60 tabs 05/24/25 [Rx Confirmed 09/12/25] valacyclovir 500 mg tablet (Valtrex) 500 mg PO BID #30 tabs 09/12/25 [Rx] Intake Visit Data Collection New Patient or Established: Established Patient (seen at [facility] within 3 years) Reason for Visit:: OBC Seen by Clinical Staff ONLY (RN/MA): No 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: No Do You Feel Safe at Home: Yes Authorities Contacted: N/A PCP or OBGYN visit in last 3 months: Yes Date of Last PCP or OBGYN visit: 08/16/25 Hx Now: Yes Are you currently on any form of Control: No Pain Present Currently: No Pain Scale Used: Hill-Gallagher/Numerical Pain scale:: 0 Smoking Status Smoking Status: Never smoker Immunizations Flu Vaccine in the Last 12 Months: No Flu Vaccine Exclusion Criteria: No Exclusion Criteria Questionnaires Covid-19 Vaccine Questionnaire Has patient been vacinated for Covid-19 Have you been vacinated for Covid-19: No PHQ-9 PHQ-2 Over the last 2 weeks, how often have you been bothered by any of the following problems? 1. Little interest or pleasure in doing things: not at all 2. Feeling down, depressed, or hopeless: not at all Total score: 0 PHQ-9 3. Trouble falling or staying asleep, or sleeping too much: Not at all 4. Feeling tired or having little energy: Not at all 5. Poor appetite or overeating: Not at all 6. Feeling bad about yourself - or that you are a failure or have let yourself or your family down: Not at all 7. Trouble concentrating on things, such as reading the newspaper or watching television: Not at all 8. Moving or speaking so slowly that other people could have noticed? - Or the opposite - being so fidgety or restless that you have been moving around a lot more than usual: not at all 9. Thoughts that you would be better off or of hurting yourself in some way: Not at all Total score: 0 If you checked off any problems, how difficult have these problems made it for you to do your work, take care of things at home, or get along with other people?: not difficult at all Source: Developed by Drs. Jaspal Samuels, Nel Ho, Angel Louise and colleagues, with an educational jean-pierre from [employer]. Depression screen completed yes Social History Living Situation History Marital Status: Single Lives With: Spouse Housing: House Tobacco History Smoking Status: Never smoker Second Hand Smoke Exposure: No Alcohol History Alcohol Intake: Former Alcohol Intake Frequency: holidays/special occasions only Domestic Abuse History Do You Feel Safe at Home: Yes Care OB Visit Log OB Flowsheet Initial Weight: Not Recorded Date <del>?</del> EGA Weight BP Alb Glu CTX Pres Fundal ht FHR Mov Dilation Station Effacement Hx Notes Visit Note 04/24/25 <del>?</del> 9w 1d 78.528 kg 115/72 absent unknown 9 145 absent 39 yo . planned . denies SAB symptoms. + for AMA and advanced paternal age. c/o nausea, tired, no vag bleeding start diclegesis today. discomfort measure for nausea. discuss sab precaution. OB panel, NIPT and carrier screen, schedule MFM NT and anatomy screen. OBC 4 week start diclegesis today. discomfort measure for nausea. discuss sab precaution. OB panel, NIPT and carrier screen, schedule MFM NT and anatomy screen. OBC 4 week. start baby aspirin nv 05/24/25 <del>?</del> 13w 3d 80.796 kg 120/70 absent unknown 13 156 absent feels tired. history of anemia, take iron 1 daily. no sab complaints. [facility] app[facility], 07/04 discuss sab precaution. start iron bid with vitamin c, consider IV iron 2nd trimester, keep mfm appt 07/04. increase fluid, rtc 4 week obc 06/16/25 <del>?</del> 16w 5d 81.42 kg 107/69 absent unknown 16 147 absent last herpes outbreak 04/02. light fm, no VB,No ROM, NO bleeding. no active lesion. question about herpes. [facility] 07/04 discuss +CF screen, schedule genetic screen, advised FOB to get CF screen, start acyclovir at 36 week. vitamin C,Lysine and zinc to prevent outbreaks, discuss safe sex. patient will do AFP after insurance approval 07/24/25 <del>?</del> 22w 1d 84.935 kg 103/65 absent unknown 22 145 active Patient has concerns about driving 5 hours in 1 day. She reports that she drives back and forth to [facility] once a month for her child to see her father. She reports that during this time she has increased back strain and tiredness because of the drive. Reports movement. Denies leaking or bleeding. No contractions at this time but she does have second trimester discomforts. Her asthma is stable and she will continue with Claudette and her Singulair. Start acyclovir at 32 weeks. Discussed comfort measures with patient. And I discussed self-help tips. Continue Claudette and Singulair for her asthma. Discussed sugary foods and sweets, diet and regular exercise. Patient has a follow-up ultrasound for growth in August. Discussed labor precautions. And third trimester labs next visit. Return in 4 weeks OB check 08/16/25 <del>?</del> 25w 3d 86.636 kg 113/72 absent unknown 25 145 active Patient has concerns about her blood pressure. She feels funny sometimes lightheaded so she has been checking her blood pressure at home for the last 5 days and she is concerned that it is low. Reports good movement. Denies contractions, bleeding, leaking Discussed blood pressure with patient. Discussed parameters with patient. Discussed ER precautions. Discussed comfort measures for ligament pain. Third trimester labs with CMP and A1c. Patient has a follow-up with maternal- medicine 11 3. Return in 4 weeks OB check 09/12/25 <del>?</del> 29w 2d 88.621 kg 115/70 absent cephalic 29 145 active MFM appointment today. Patient's 1 hour GTT was 151. Reports movement. Denies leaking bleeding or contractions. Patient reports increased stress at work due to a project she was working on. And that she is having a herpes breakout. She continues to take lysine vitamin C and zinc. Ordered 3-hour GTT. Hemoglobin A1c. Valtrex 500 p.o. twice daily. Discussed safe sex and condom use. Discussed labor precautions. I reviewed Tdap with patient she will decide next visit. Return in 3 weeks OB check ARNEL Calculator Estimated Delivery Date Method Current WG Current Estimate 11/26/25 LMP (Certain) 29w 2d Other Estimates 11/26/25 Ultrasound #1 29w 2d 11/26/25 Manual 29w 2d final ARNEL: 11/26/25. EFW >99% Notes Visit Date: 09/12/25 Last Updated by: Nathalie Mishra CNM 1hr gtt: 151. 09/12/25: herpes out break. start valtrex today, 3 hr gtt at [facility] Visit Date: 07/24/25 Last Updated by: Nathalie Mishra CNM 07/24: FOB screen neg for cystic fibrosis carrier 07/24: Asthma, continue Singular and Claudette Visit Date: 05/24/25 Last Updated by: Nathalie Mishra CNM ob panel: AB+,abs-, rpr;;nr, rub imm, hbsag-,hiv-,hc-, GC/CT-. nipt-,sma/cf- Visit Date: 04/24/25 Last Updated by: Nathalie Mishra CNM 39 yo . LMP: 02/19/25. EDC 11/28/25 Office Procedures OBC Clinic LOC & Office Proc's Nursing/Assessment Patient Status: Established Patient OB Clinic Nursing Assessment: Medication Reconciliation, Update PMH in EMR and Vital Signs OB Clinic Coordination of Care: Consent,records obtained, informed consent, Education Simp Pt/Fam, Lab and Imaging orders, Results/Orders obtained and Staff clarify orders Special Needs: Heart tones Established Patient Charge Established Patient Point Assignment: 110 Established Patient Point Charge: EP Level 3 (80-115) Assessment & Plan Diagnosis / Problem List (1) Diet controlled gestational diabetes mellitus (GDM) in third trimester: Status: Acute (2) Encounter for supervision of high risk in third trimester, antepartum: Status: Acute Plan Herpes outbreak today. Start Valtrex 500 twice daily. Patient will continue until . Continue vitamin C lysine and zinc. Try to reduce stresses. Discussed labor precautions. I discussed Tdap with patient and she will make a decision next visit. Maternal- medicine ultrasound was done today. 3-hour GTT and A1c at [facility]. Comfort measures for cough and cold. Return in 3 weeks OB to Additional Plan Follow Up: 3 Weeks (obc)
== END 2025-09-12 15:27 | disposition home or self-care (01) ==
LOC: HODSOBC 14:29
PROVIDERS: Supervising Provider Advanced Practice Midwife; Visit Provider Advanced Practice Midwife
DX: O09.893 Supervision of other high risk pregnancies, third trimester (principal); O24.410 Gestational diabetes mellitus in pregnancy, diet controlled; O98.513 Other viral diseases complicating pregnancy, third trimester; B00.9 Herpesviral infection, unspecified; O09.523 Supervision of elderly multigravida, third trimester; Z3A.29 29 weeks gestation of pregnancy
CPT/HCPCS: 99213; G0463

== ENCOUNTER → 2025-09-12 | Outpatient (CLI) | payer BC, SELFPAY ==
[2025-09-12 13:57] LABS: Basophils # (Auto) 0.0 Thou/mm3 (0.0-0.2); Basophils % (Auto) 0 % (0-2.5); Eosinophils # (Auto) 0.2 Thou/mm3 (0.0-0.5); Eosinophils % (Auto) 2 % (0-10); Hematocrit 29.9 % (36.0-46.0); Hemoglobin 10.3 g/dL (12.0-16.0); Immature Granulocytes Auto 0.07 Thou/mm3 (0.00-0.00); Lymphocytes # (Auto) 1.2 Thou/mm3 (1.0-4.8); Lymphocytes % (Auto) 16 % (10-50); Mean Corpuscular HGB Conc 34.4 g/dl (31.0-37.0); Mean Corpuscular Hemoglobin 34.0 pg (25.0-35.0); Mean Corpuscular Volume 99 fL (80-100); Monocytes # (Auto) 0.5 Thou/mm3 (0.0-0.8); Monocytes % (Auto) 6 % (0-12); Neutrophils # (Auto) 5.8 Thou/mm3 (1.8-7.7); Neutrophils % (Auto) 75 % (37-80); Nucleated Red Blood Cell # 0.00 Thou/mm3 (0.00-0.00); Nucleated Red Blood Cell % 0 /100 WBC (0); Platelet Count 180 Thou/mm3 (140-440); RDW Standard Deviation 43.1 fL (36.4-46.3); Red Blood Count 3.03 Miln/mm3 (4.00-5.20); White Blood Count 7.8 Thou/mm3 (3.6-11.0)
[2025-09-12 14:12] LABS: C-Reactive Protein 1.6 mg/dL (0.0-0.9); Free T4 (Free Thyroxine) 1.16 ng/dL (0.89-1.76); Thyroid Stimulating Hormone 0.94 uIU/mL (0.55-4.78)
[2025-09-12 14:18] LABS: Iron 49 mcg/dL (50-170); Percent Iron Saturation 12 % (20-55); Total Iron Binding Capacity 385 mcg/dL (250-425); Unsaturated Iron Binding 336 (225-295)
[2025-09-20 07:36] LABS: T3,Total* 146 ng/dL (76-181); Thyroid Peroxidase Antibodies* 156 IU/mL (<9)
== END | disposition home or self-care (01) ==
LOC: COPL 11:33
PROVIDERS: PCP Family Medicine; Referring Provider Nurse Practitioner Family; Visit Provider Nurse Practitioner Family
DX: E06.3 Autoimmune thyroiditis (principal); D50.9 Iron deficiency anemia, unspecified
CPT/HCPCS: 36415; 83540; 83550; 84439; 84443; 84480; 85025; 86140; 86376

== ENCOUNTER → 2025-09-20 | Outpatient (CLI) | payer BC, SELFPAY ==
[2025-09-20 08:48] LABS: Glucose Estimated Average 97 mg/dL (80-131); Hemoglobin A1C 5.0 % Hgb (4.8-6.0)
== END | disposition home or self-care (01) ==
LOC: COPL 07:03
PROVIDERS: PCP Family Medicine; Referring Provider Advanced Practice Midwife; Visit Provider Advanced Practice Midwife
DX: O09.93 Supervision of high risk pregnancy, unspecified, third trimester (principal); O24.410 Gestational diabetes mellitus in pregnancy, diet controlled
CPT/HCPCS: 36415; 82951; 82952; 83036

== ENCOUNTER → 2025-09-22 | Outpatient (CLI) | payer BC, SELFPAY ==
[2025-09-22 08:36] LABS: Glucose Estimated Average 97 mg/dL (80-131); Hemoglobin A1C 5.0 % Hgb (4.8-6.0)
[2025-09-22 08:48] LABS: Glucose, Fasting 92 mg/dL (74-106)
[2025-09-22 08:54] LABS: Glucose 1/2 Hour 157 mg/dL (110-170)
[2025-09-22 09:47] LABS: Glucose 1 Hour 159 mg/dL (120-170)
[2025-09-22 10:51] LABS: Glucose 2 Hour 132 mg/dL (70-120)
[2025-09-22 12:08] LABS: Glucose 3 Hour 102 mg/dL (70-120)
== END | disposition home or self-care (01) ==
LOC: COPL 07:02
PROVIDERS: PCP Family Medicine; Referring Provider Advanced Practice Midwife; Visit Provider Advanced Practice Midwife
DX: O24.410 Gestational diabetes mellitus in pregnancy, diet controlled (principal); O09.93 Supervision of high risk pregnancy, unspecified, third trimester
CPT/HCPCS: 36415; 82951; 82952; 83036

== ENCOUNTER 2025-09-28 11:24 | Outpatient (AMB) | payer BC, SELFPAY ==
[2025-09-28 11:29] VITALS: BP 101/68; PULSE 86; RESP 18; TEMP 36.3; O2SAT 98; BMI 30.9
--- NOTE | 2025-09-28 11:29 | OBCLNT_ITS ---
Vital Signs 09/28/25 11:29 Height 1.68 m Height Method Stated Weight 87.317 kg Weight Measurement Method Standing Scale BMI 30.9 BP 101/68 Blood Pressure Source Automatic Cuff Blood Pressure Location Right Upper Arm Position Sitting Respiration 18 Pulse 86 Pulse Source Monitor Temp 97.3 F Temp Source Temporal Artery Scan Pulse Oximetry (%) 98 Oxygen Delivery Method Room Air Allergies/Home Meds Allergies & Medications Allergies No Known Allergies Allergy (Verified 09/28/25 11:29) Medication Reconciliation doxylamine 10 mg-pyridoxine (vit B6) 10 mg tablet,delayed release (Diclegis) 1 tab PO BID 30 days #60 tabs 04/24/25 [Rx Confirmed 09/28/25] ascorbic acid (vitamin C) 1,000 mg capsule 1,000 mg PO BID #60 caps 05/24/25 [Rx Confirmed 09/28/25] ferrous sulfate 325 mg (65 mg iron) tablet 325 mg PO BID #60 tabs 05/24/25 [Rx Confirmed 09/28/25] valacyclovir 500 mg tablet (Valtrex) 500 mg PO BID #30 tabs 09/12/25 [Rx Confirmed 09/28/25] hydrocortisone 2.5 % topical cream with perineal applicator (Proctosol HC) 1 applic DC QD-BID PRN hemorrhoids #30 grams 09/28/25 [Rx] Immunizations Immunizations Flu Vaccine in the Last 12 Months: No Flu Vaccine Exclusion Criteria: Refused by Patient Care OB Visit Log OB Flowsheet Initial Weight: Not Recorded Date -?-?-?-?-?-?-?-?-?-?-?-?- EGA Weight BP Alb Glu CTX Pres Fundal ht FHR Mov Dilation Station Effacement Hx Notes Visit Note 04/24/25 -?-?-?-?-?-?-?-?-?-?-?-?- 9w 1d 78.528 kg 115/72 absent unknown 9 145 absent 39 yo . planned . denies SAB symptoms. + for AMA and advanced paternal age. c/o nausea, tired, no vag bleeding start diclegesis today. discomfort measure for nausea. discuss sab precaution. OB panel, NIPT and carrier screen, schedule MFM NT and anatomy screen. OBC 4 week start diclegesis today. disc omfort measure for nausea. discuss sab precaution. OB panel, NIPT and carrier screen, schedule MFM NT and anatomy screen. OBC 4 week. start baby aspirin nv 05/24/25 -?-?-?-?-?-?-?-?-?-?-?-?- 13w 3d 80.796 kg 120/70 absent unknown 13 156 absent feels tired. history of anemia, take iron 1 daily. no sab complaints. mfm appt, 07/04 discuss sab precaution. start iron bid with vitamin c, consider IV iron 2nd trimester, keep mfm appt 07/04. increase fluid, rtc 4 week obc 06/16/25 -?-?-?-?-?-?-?-?-?-?-?-?- 16w 5d 81.42 kg 107/69 absent unknown 16 147 absent last herpes outbreak 04/02. light fm, no VB,No ROM, NO bleeding. no active lesion. question about herpes. mfm 07/04 discuss +CF scr een, schedule genetic screen, advised FOB to get CF screen, start acyclovir at 36 week. vitamin C,Lysine and zinc to prevent outbreaks, discuss safe sex. patient will do AFP after insurance approval 07/24/25 -?-?-?-?-?-?-?-?-?-?-?-?- 22w 1d 84.935 kg 103/65 absent unknown 22 145 active Patient has concerns about driving 5 hours in 1 day. She reports that she drives back and forth to [facility] once a month for her child to see her father. She reports that during this time she has increased back strain and tiredness because of the drive. Reports movement. Denies leaking or bleeding. No contractions at this time but she does have second trimester discomforts. Her asthma is stable and she will continue with Claudette and her Singulair. Start acyclovir at 32 weeks. Discussed comfor t measures with patient. And I discussed self-help tips. Continue Claudette and Singulair for her asthma. Discussed sugary foods and sweets, diet and regular exercise. Patient has a follow-up ultrasound for growth in August. Discussed labor precautions. And third trimester labs next visit. Return in 4 weeks OB check 08/16/25 -?-?-?-?-?-?-?-?-?-?-?-?- 25w 3d 86.636 kg 113/72 absent unknown 25 145 active Patient has concerns about her blood pressure. She feels funny sometimes lightheaded so she has been checking her blood pressure at home for the last 5 days and she is concerned that it is low. Reports good movement. Denies contractions, bleeding, leaking Discussed blood pressure with patient. Discussed parameters with patient. Discussed ER precautions. Discussed comfort measures for ligament pain. Third trimester labs with CMP and A1c. Patient has a follow-up with maternal- medicine 11 3. Return in 4 weeks OB check 09/12/25 -?-?-?-?-?-?-?-?-?-?-?-?- 29w 2d 88.621 kg 115/70 absent cephalic 29 145 active MFM appointment today. Patient's 1 hour GTT was 151. Reports movement. Denies leaking bleeding or contractions. Patient reports increased stress at work due to a project she was working on. And that she is having a herpes breakout. She continues to take lysine vitamin C and zinc. Ordered 3-hour GTT. Hemoglobin A1c. Valtrex 500 p.o. twice daily. Discussed safe sex and condom use. Discussed labor precautions. I reviewed Tdap with patient she will decide next visit. Return in 3 weeks OB check 09/28/25 -?-?-?-?-?-?-?-?-?-?-?-?- 31w 4d 87.317 kg 101/68 absent cephalic 30 145 active Reports good movement. Denies leaking, bleeding, contractions. Patient works at home for [employer]. She was very tearful and wanted to discuss her health prior to patient . Patient reports that in May she went to [place] to see HEAD OF ADVERTISING/surgeon because she was not feeling right she was tired all the time she was gaining weight she just did not feel right. Lab work was done and the surgeon told her she was anemic so she received an iron transfusion. Patient then scheduled with her primary care here in [place] and labs were drawn. Her labs showed normal anemia workup and her CHEM panel was normal or her H&H was 11/32. So patient states she does not feel tired or weak but she still concerned that her hemoglobin is 10/29. Patient also was concerned that after her last baby she had problems with hemorrhoids and had to have one of them excised. And she did not want to go through hemorrhoid pain again. She also was concerned that she had a lot of discomfort because of an episiotomy and is requesting an elective . Hemoglobinopathy panel ordered. I scheduled patient with [facility] to discuss elective . Discussed comfort measures for hemorrhoids such as increased fiber, Tucks and I prescribed Proctosol that she could place twice daily. I asked her to make an appointment with her primary care about anemia and inform her primary care that I did order some lab work to check for hemoglobinopathies. Discussed labor precautions. Kick count. And Tdap today. I also discussed her 3-hour GTT there was 1 value that was high the others were at range. And I discussed diet and weight gain ARNEL Calculator Estimated Delivery Date Method Current WG Current Estimate 11/26/25 LMP (Certain) 31w 4d Other Estimates 11/26/25 Ultrasound #1 31w 4d 11/26/25 Manual 31w 4d final ARNEL: 11/26. EFW >99% Notes Visit Date: 09/12/25 Last Updated by: Nathalie Mishra CNM 1hr gtt: 151. 09/12/25: herpes out break. start valtrex today, 3 hr gtt at MOB Visit Date: 07/24/25 Last Updated by: Nathalie Mishra CNM 07/24: FOB screen neg for cystic fibrosis carrier 07/24: Asthma, continue Singular and Claudette Visit Date: 05/24/25 Last Updated by: Nathalie Mishra CNM ob panel: AB+,abs-, rpr;;nr, rub imm, hbsag-,hiv-,hc-, GC/CT-. nipt-,sma/cf- Visit Date: 04/24/25 Last Updated by: Nathalie Mishra CNM 39 yo . LMP: 02/19/25. EDC 11/28/25 Office Procedures OBC Clinic LOC & Office Proc's Nursing/Assessment Patient Status: Established Patient OB Clinic Nursing Assessment: Medication Reconciliation, Update PMH in EMR and Vital Signs OB Clinic Coordination of Care: Complex Care and Chronic Disease 1-5, Education Complex Pt/Fam, Consent,records obtained, informed consent, Lab and Imaging orders, Results/Orders obtained and Staff clarify orders Special Needs: Heart tones Established Patient Charge Established Patient Point Assignment: 140 Established Patient Point Charge: EP Level 4 (120-155) Injection/Vaccine Admin SQ Im Injection: Yes Immunizations diphth,pertus(acell),tetanus 2.5 Lf unit-8 mcg-5 Lf/0.5mL IM syringe Performing Provider: Nathalie Mishra CNM Performing Location: [facility] Administered by: Yvonne Kumar MA on 09/28/25 13:51 Dose Route Admin Location Dispensed Lot Number Expiration Date Pack age [facility] Pattern Generator Operator 0.5 mL IM Left Deltoid 0.5 mL [id number] 02/03/28 00125-719-96 [id number] [employer] VIS Given Date VIS Provided VIS Publication Date 09/28/25 Single Vaccine 24 Eligibility Eligibility Date Funding Source Public Non-[facility] Assessment & Plan Diagnosis / Problem List (1) Encounter for supervision of high risk in third trimester, antepartum: Status: Acute (2) Anemia complicating : Status: Acute Qualifiers: Trimester: third trimester Qualified Code(s): O99.013 - Anemia complicating , third trimester (3) Advanced maternal age (AMA) in : Status: Acute Plan Proctosol given to patient. Applied twice daily. I discussed other comfort measures such as Tucks and sitz bath's. Increase fiber and fluids. This is for hemorrhoids. I made an appointment with [facility] to discuss elective . I discussed her 3-hour GTT and. Also discussed diet and weight gain. And addressing her concerns of anemia I ordered hemoglobinopathy panel. I also advised her to schedule with her primary care to discuss other testing that might be needed in management . Discussed labor precautions and kick count. Additional Plan Follow Up: 2 Weeks (obc)
== END 2025-09-28 12:43 | disposition home or self-care (01) ==
LOC: HODSOBC 11:24
PROVIDERS: Supervising Provider Advanced Practice Midwife; Visit Provider Advanced Practice Midwife
DX: O09.893 Supervision of other high risk pregnancies, third trimester (principal); O99.013 Anemia complicating pregnancy, third trimester; O09.523 Supervision of elderly multigravida, third trimester; Z3A.31 31 weeks gestation of pregnancy; Z87.59 Personal history of other complications of pregnancy, childbirth and the puerperium; Z23 Encounter for immunization
CPT/HCPCS: 90715; 96372; 99214; G0463

== ENCOUNTER → 2025-10-03 | Outpatient (CLI) | payer BC, SELFPAY ==
[2025-10-08 15:38] LABS: Hemoglobinopathy Hematocrit 33.0 % (35.9-46.0); Hemoglobinopathy Hemoglobin 11.0 g/dL (11.7-15.5); Hemoglobinopathy Hemoglobin A2 2.6 % (2.0-3.2); Hemoglobinopathy Hemoglobin F 0.0 % (LESS THAN 2.0); Hemoglobinopathy MCH 34.2 pg (27.0-33.0); Hemoglobinopathy MCV 102.5 fL (81.4-101.7); Hemoglobinopathy Red Blood Cnt 3.22 Million/uL (3.80-5.10)
[2025-10-09 07:11] LABS: Hemoglobinopathy Hemoglobin A 97.4 %; Hemoglobinopathy RDW 11.7 % (11.0-15.0)
== END | disposition home or self-care (01) ==
LOC: COPL 11:01
PROVIDERS: PCP Family Medicine; Referring Provider Advanced Practice Midwife; Visit Provider Advanced Practice Midwife
DX: O99.019 Anemia complicating pregnancy, unspecified trimester (principal); O09.93 Supervision of high risk pregnancy, unspecified, third trimester
CPT/HCPCS: 36415; 83020; 85014; 85018; 85041

== ENCOUNTER 2025-10-13 10:31 | Outpatient (AMB) | payer BC, SELFPAY ==
[2025-10-13 10:38] VITALS: BP 104/67; PULSE 90; RESP 18; TEMP 36.1; O2SAT 98; BMI 31.6
--- NOTE | 2025-10-13 10:38 | OBCLNT_ITS ---
Vital Signs 10/13/25 10:38 Height 1.68 m Height Method Stated Weight 89.414 kg Weight Measurement Method Standing Scale BMI 31.6 BP 104/67 Blood Pressure Source Automatic Cuff Blood Pressure Location Right Upper Arm Position Sitting Respiration 18 Pulse 90 Pulse Source Monitor Temp 97.0 F Temp Source Temporal Artery Scan Pulse Oximetry (%) 98 Oxygen Delivery Method Room Air Allergies/Home Meds Allergies & Medications Allergies No Known Allergies Allergy (Verified 10/13/25 10:39) Medication Reconciliation doxylamine 10 mg-pyridoxine (vit B6) 10 mg tablet,delayed release (Diclegis) 1 tab PO BID 30 days #60 tabs 04/24/25 [Rx Confirmed 10/13/25] ascorbic acid (vitamin C) 1,000 mg capsule 1,000 mg PO BID #60 caps 05/24/25 [Rx Confirmed 10/13/25] ferrous sulfate 325 mg (65 mg iron) tablet 325 mg PO BID #60 tabs 05/24/25 [Rx Confirmed 10/13/25] hydrocortisone 2.5 % topical cream with perineal applicator (Proctosol HC) 1 applic WI QD-BID PRN hemorrhoids #30 grams 09/28/25 [Rx] Immunizations Immunizations Flu Vaccine in the Last 12 Months: No Flu Vaccine Exclusion Criteria: No Exclusion Criteria Care OB Visit Log OB Flowsheet Initial Weight: Not Recorded Date -?-?-?-?-?-?-?-?-?-?-?-?- EGA Weight BP Alb Glu CTX Pres Fundal ht FHR Mov Dilation Station Effacement Hx Notes Visit Note 04/24/25 -?-?-?-?-?-?-?-?-?-?-?-?- 9w 1d 78.528 kg 115/72 absent unknown 9 145 absent 39 yo . planned . denies SAB symptoms. + for AMA and advanced paternal age. c/o nausea, tired, no vag bleeding start diclegesis today. discomfort measure for nausea. discuss sab precaution. OB panel, NIPT and carrier screen, schedule MFM NT and anatomy screen. OBC 4 week start diclegesis today. disc omfort measure for nausea. discuss sab precaution. OB panel, NIPT and carrier screen, schedule MFM NT and anatomy screen. OBC 4 week. start baby aspirin nv 05/24/25 -?-?-?-?-?-?-?-?-?-?-?-?- 13w 3d 80.796 kg 120/70 absent unknown 13 156 absent feels tired. history of anemia, take iron 1 daily. no sab complaints. [facility] appt, 07/04 discuss sab precaution. start iron bid with vitamin c, consider IV iron 2nd trimester, keep mfm appt 07/04. increase fluid, rtc 4 week obc 06/16/25 -?-?-?-?-?-?-?-?-?-?-?-?- 16w 5d 81.42 kg 107/69 absent unknown 16 147 absent last herpes outbreak 04/02. light fm, no VB,No ROM, NO bleeding. no active lesion. question about herpes. [facility] 07/04 discuss +CF scr een, schedule genetic screen, advised FOB to get CF screen, start acyclovir at 36 week. vitamin C,Lysine and zinc to prevent outbreaks, discuss safe sex. patient will do AFP after insurance approval 07/24/25 -?-?-?-?-?-?-?-?-?-?-?-?- 22w 1d 84.935 kg 103/65 absent unknown 22 145 active Patient has concerns about driving 5 hours in 1 day. She reports that she drives back and forth to [facility] once a month for her child to see her father. She reports that during this time she has increased back strain and tiredness because of the drive. Reports movement. Denies leaking or bleeding. No contractions at this time but she does have second trimester discomforts. Her asthma is stable and she will continue with Claudette and her Singulair. Start acyclovir at 32 weeks. Discussed comfor t measures with patient. And I discussed self-help tips. Continue Claudette and Singulair for her asthma. Discussed sugary foods and sweets, diet and regular exercise. Patient has a follow-up ultrasound for growth in August. Discussed labor precautions. And third trimester labs next visit. Return in 4 weeks OB check 08/16/25 -?-?-?-?-?-?-?-?-?-?-?-?- 25w 3d 86.636 kg 113/72 absent unknown 25 145 active Patient has concerns about her blood pressure. She feels funny sometimes lightheaded so she has been checking her blood pressure at home for the last 5 days and she is concerned that it is low. Reports good movement. Denies contractions, bleeding, leaking Discussed blood pressure with patient. Discussed parameters with patient. Discussed ER precautions. Discussed comfort measures for ligament pain. Third trimester labs with CMP and A1c. Patient has a follow-up with maternal- medicine 11 3. Return in 4 weeks OB check 09/12/25 -?-?-?-?-?-?-?-?-?-?-?-?- 29w 2d 88.621 kg 115/70 absent cephalic 29 145 active MFM appointment today. Patient's 1 hour GTT was 151. Reports movement. Denies leaking bleeding or contractions. Patient reports increased stress at work due to a project she was working on. And that she is having a herpes breakout. She continues to take lysine vitamin C and zinc. Ordered 3-hour GTT. Hemoglobin A1c. Valtrex 500 p.o. twice daily. Discussed safe sex and condom use. Discussed labor precautions. I reviewed Tdap with patient she will decide next visit. Return in 3 weeks OB check 09/28/25 -?-?-?-?-?-?-?-?-?-?-?-?- 31w 4d 87.317 kg 101/68 absent cephalic 30 145 active Reports good movement. Denies leaking, bleeding, contractions. Patient works at home for [employer]. She was very tearful and wanted to discuss her health prior to patient . Patient reports that in May she went to [place] to see REPAIR SPECIALIST/surgeon because she was not feeling right she was tired all the time she was gaining weight she just did not feel right. Lab work was done and the surgeon told her she was anemic so she received an iron transfusion. Patient then scheduled with her primary care here in [place] and labs were drawn. Her labs showed normal anemia workup and her CHEM panel was normal or her H&H was 11/32. So patient states she does not feel tired or weak but she still concerned that her hemoglobin is 10/29. Patient also was concerned that after her last baby she had problems with hemorrhoids and had to have one of them excised. And she did not want to go through hemorrhoid pain again. She also was concerned that she had a lot of discomfort because of an episiotomy and is requesting an elective . Hemoglobinopathy panel ordered. I scheduled patient with REPAIR SPECIALIST to discuss elective . Discussed comfort measures for hemorrhoids such as increased fiber, Tucks and I prescribed Proctosol that she could place twice daily. I asked her to make an appointment with her primary care about anemia and inform her primary care that I did order some lab work to check for hemoglobinopathies. Discussed labor precautions. Kick count. And Tdap today. I also discussed her 3-hour GTT there was 1 value that was high the others were at range. And I discussed diet and weight gain 10/13/25 -?-?-?-?-?-?-?-?-?-?-?-?- 33w 5d 89.414 kg 104/67 absent cephalic 34 155 active - She reports having had 2 ultrasounds during this , one at 19 weeks and another at 29 weeks, both showing her baby measuring in the 95th percentile. - The baby is measuring large not just i n weight but also in bone structure, particularly shoulders and stomach. - She passed the 3-hour glucose test, co nfirming no diabetes. - Her last delivery was vaginal with epi dural and she experienced a rough recovery due to episiotomy and hemorrhoids. - She reports current symptoms of nasal congestion and sore throat. - Her due date is November 26 based on last menstrual period and 19-week ultrasound. - Take Benefiber daily until delivery - Drink at least 32 ounces of water virgie y - Exercise with an exercise ball and do Kegel exercises to prepare for labor - Epidural is recommended - Ultrasound at 39 weeks to measure baby 's weight - Flu shot is recommended - For nasal congestion and sore throat, do steam inhalations and saline gargles - Avoid antibiotics if possible - Appointment with Nathalie in 2 weeks - Drop off forms at the front office - Discuss Hep B vaccine with pediatricia n after ARNEL Calculator Estimated Delivery Date Method Current WG Current Estimate 11/26/25 LMP (Certain) 34w 0d Other Estimates 11/26/25 Ultrasound #1 34w 0d 11/26/25 Manual 34w 0d final ARNEL: 1/18 /26. EFW >99% Notes Visit Date: 09/12/25 Last Updated by: Nathalie Mishra CNM 1hr gtt: 151. 09/12/25: herpes out break. start valtrex today, 3 hr gtt at MOB Visit Date: 07/24/25 Last Updated by: Nathalie Mishra CNM 07/24: FOB screen neg for cystic fibrosis carrier 07/24: Asthma, continue Singular and Claudette Visit Date: 05/24/25 Last Updated by: Nathalie Mishra CNM ob panel: AB+,abs-, rpr;;nr, rub imm, hbsag-,hiv-,hc-, GC/CT-. nipt-,sma/cf- Visit Date: 04/24/25 Last Updated by: Nathalie Mishra CNM 39 yo . LMP: 02/19/25. EDC 11/28/25 Office Procedures OBC Clinic LOC & Office Proc's Nursing/Assessment Patient Status: Established Patient OB Clinic Nursing Assessment: Medication Reconciliation, Update PMH in EMR and Vital Signs OB Clinic Coordination of Care: Complex Care and Chronic Disease 1-5, Education Complex Pt/Fam, Consent,records obtained, informed consent, Lab and Imaging orders, Results/Orders obtained and Staff clarify orders Special Needs: Heart tones Established Patient Charge Established Patient Point Assignment: 140 Established Patient Point Charge: EP Level 4 (120-155) Assessment & Plan Diagnosis / Problem List (1) Anemia complicating : Status: Acute Qualifiers: Trimester: third trimester Qualified Code(s): O99.013 - Anemia complicating , third trimester (2) Diet controlled gestational diabetes mellitus (GDM) in third trimester: Status: Acute (3) Encounter for supervision of high risk in third trimester, antepartum: Status: Acute Plan Problem List - Macrosomia - Nasal congestion - Sore throat - Constipation Assessment Patient presents with macrosomia, with ultrasounds at 19 and 29 weeks showing measurements in the 95th percentile with enlarged shoulders and st omach, raising concern for shoulder dystocia during delivery. Patient has passed 3-hour glucose tolerance test, ruling out gestational diabetes. Patient is experiencing nasal congestion and sore throat symptoms. Patient reports constipation during current . Previous delivery was vaginal with epidural, complicated by episiotomy and hemorrhoids with difficult recovery. Plan - Take Benefiber daily until delivery - Drink at least 32 ounces of water daily - Exercise with an exercise ball and do Kegel exercises to prepare for labor - Epidural is recommended - Ultrasound at 39 weeks to measure baby's weight - Flu shot is recommended - For nasal congestion and sore throat, do steam inhalations and saline gargles - Avoid antibiotics if possible - Appointment with Nathalie in 2 weeks - Drop off forms at the front office - Discuss Hep B vaccine with electric detector operator after 1. Progress Reviewed gestational age, growth, and heart rate. Patient has had 2 ultrasounds at 19 weeks and 29 weeks showing growth in 95th percentile with large measurements including bones, shoulders, and stomach. Due date November 26 based on last menstrual period and 19-week ultrasound. Planned ultrasound at 39 weeks to measure baby's weight. Planned frequent visits (every 2 weeks until 36 weeks, then weekly). 2. Instructed patient to monitor movements and report decreases immediately. 3. Testing Counseled on routine third-trimester labs per guidelines. Patient passed 3-hour glucose test ruling out diabetes. Discussed potential need for ultrasound or monitoring based on risk factors. 4. Preeclampsia Precaution Educated on preeclampsia signs: severe headache, vision changes, right upper quadrant pain, sudden swelling. Advised urgent reporting of symptoms and discussed blood pressure monitoring if high risk. 5. Labor Precautions Reviewed labor signs: regular contractions, pelvic pressure, back pain, bleeding, or fluid leakage. Instructed to seek immediate care for these symptoms. 6. Lifestyle and Delivery Preparation Reinforced vitamins, nutrition, and safe activity. Instructed to take Benefiber daily until delivery and drink at least 32 ounces of water daily. Recommended exercise with exercise ball and Kegel exercises to prepare for labor and reduce tearing. Discussed plan including consideration of due to macrosomia and concern for shoulder dystocia, pain management with epidural recommended, and . Counseled that thresholds are 4,500 grams for diabetic women and 5,000 grams for non-diabetic women. Advised on labor preparation (e.g., hospital bag) and expectations. 7. Psychosocial Support Assessed emotional well-being and offered resources for mental health or parenting support.
== END 2025-10-13 11:13 | disposition home or self-care (01) ==
LOC: HODSOBC 10:31
PROVIDERS: PCP Family Medicine; Referring Provider Family Medicine; Supervising Provider Obstetrics & Gynecology; Visit Provider Obstetrics & Gynecology
DX: O09.893 Supervision of other high risk pregnancies, third trimester (principal); O99.013 Anemia complicating pregnancy, third trimester; O24.410 Gestational diabetes mellitus in pregnancy, diet controlled; O09.523 Supervision of elderly multigravida, third trimester; O36.63X0 Maternal care for excessive fetal growth, third trimester, not applicable or unspecified; Z3A.33 33 weeks gestation of pregnancy; O99.513 Diseases of the respiratory system complicating pregnancy, third trimester; J02.9 Acute pharyngitis, unspecified; O99.613 Diseases of the digestive system complicating pregnancy, third trimester; K59.00 Constipation, unspecified; Z87.59 Personal history of other complications of pregnancy, childbirth and the puerperium
CPT/HCPCS: 99214; G0463

== ENCOUNTER 2025-10-26 09:56 | Outpatient (AMB) | payer BC, SELFPAY ==
--- NOTE | 2025-10-26 10:13 | OBCLNT_ITS ---
Vital Signs 10/26/25 10:14 Height 1.68 m Height Method Stated Weight 89.925 kg Weight Measurement Method Standing Scale BMI 31.8 BP 109/73 Blood Pressure Source Automatic Cuff Blood Pressure Location Left Upper Arm Position Sitting Respiration 18 Pulse 95 Pulse Source Monitor Temp 97.3 F Temp Source Oral Pulse Oximetry (%) 97 Oxygen Delivery Method Room Air Allergies/Home Meds Allergies & Medications Allergies No Known Allergies Allergy (Verified 10/26/25 10:14) Medication Reconciliation doxylamine 10 mg-pyridoxine (vit B6) 10 mg tablet,delayed release (Diclegis) 1 tab PO BID 30 days #60 tabs 04/24/25 [Rx Confirmed 10/26/25] ascorbic acid (vitamin C) 1,000 mg capsule 1,000 mg PO BID #60 caps 05/24/25 [Rx Confirmed 10/26/25] ferrous sulfate 325 mg (65 mg iron) tablet 325 mg PO BID #60 tabs 05/24/25 [Rx Confirmed 10/26/25] hydrocortisone 2.5 % topical cream with perineal applicator (Proctosol HC) 1 applic HI QD-BID PRN hemorrhoids #30 grams 09/28/25 [Rx Confirmed 10/26/25] Immunizations Immunizations Flu Vaccine in the Last 12 Months: No Flu Vaccine Exclusion Criteria: No Exclusion Criteria Care OB Visit Log OB Flowsheet Initial Weight: Not Recorded Date -?-?-?-?-?-?-?-?-?-?-?-?- EGA Weight BP Alb Glu CTX Pres Fundal ht FHR Mov Dilation Station Effacement Hx Notes Visit Note 04/24/25 -?-?-?-?-?-?-?-?-?-?--?-?- 9w 1d 78.528 kg 115/72 absent unknown 9 145 absent 39 yo . planned . denies SAB symptoms. + for AMA and advanced paternal age. c/o nausea, tired, no vag bleeding start diclegesis today. discomfort measure for nausea. discuss sab precaution. OB panel, NIPT and carrier screen, schedule MFM NT and anatomy screen. OBC 4 week start diclegesis today. disc omfort measure for nausea. discuss sab precaution. OB panel, NIPT and carrier screen, schedule MFM NT and anatomy screen. OBC 4 week. start baby aspirin nv 05/24/25 -?-?-?-?-?-?-?-?-?-?-?-?- 13w 3d 80.796 kg 120/70 absent unknown 13 156 absent feels tired. history of anemia, take iron 1 daily. no sab complaints. mfm appt, 07/04 discuss sab precaution. start iron bid with vitamin c, consider IV iron 2nd trimester, keep mfm appt 07/04. increase fluid, rtc 4 week obc 06/16/25 -?-?-?-?-?-?-?-?-?-?--?-?- 16w 5d 81.42 kg 107/69 absent unknown 16 147 absent last herpes outbreak 04/02. light fm, no VB,No ROM, NO bleeding. no active lesion. question about herpes. m 07/04 discuss +CF scr een, schedule genetic screen, advised FOB to get CF screen, start acyclovir at 36 week. vitamin C,Lysine and zinc to prevent outbreaks, discuss safe sex. patient will do AFP after insurance approval 07/24/25 -?-?-?-?-?-?-?-?-?-?-?-?- 22w 1d 84.935 kg 103/65 absent unknown 22 145 active Patient has concerns about driving 5 hours in 1 day. She reports that she drives back and forth to [facility] once a month for her child to see her father. She reports that during this time she has increased back strain and tiredness because of the drive. Reports movement. Denies leaking or bleeding. No contractions at this time but she does have second trimester discomforts. Her asthma is stable and she will continue with Claudette and her Singulair. Start acyclovir at 32 weeks. Discussed comfor t measures with patient. And I discussed self-help tips. Continue Claudette and Singulair for her asthma. Discussed sugary foods and sweets, diet and regular exercise. Patient has a follow-up ultrasound for growth in August. Discussed labor precautions. And third trimester labs next visit. Return in 4 weeks OB check 08/16/25 -?-?-?-?-?-?-?-?-?-?-?-?- 25w 3d 86.636 kg 113/72 absent unknown 25 145 active Patient has concerns about her blood pressure. She feels funny sometimes lightheaded so she has been checking her blood pressure at home for the last 5 days and she is concerned that it is low. Reports good movement. Denies contractions, bleeding, leaking Discussed blood pressure with patient. Discussed parameters with patient. Discussed ER precautions. Discussed comfort measures for ligament pain. Third trimester labs with CMP and A1c. Patient has a follow-up with maternal- medicine 11 3. Return in 4 weeks OB check 09/12/25 -?-?-?-?-?-?-?-?-?-?-?-?- 29w 2d 88.621 kg 115/70 absent cephalic 29 145 active MFM appointment today. Patient's 1 hour GTT was 151. Reports movement. Denies leaking bleeding or contractions. Patient reports increased stress at work due to a project she was working on. And that she is having a herpes breakout. She continues to take lysine vitamin C and zinc. Ordered 3-hour GTT. Hemoglobin A1c. Valtrex 500 p.o. twice daily. Discussed safe sex and condom use. Discussed labor precautions. I reviewed Tdap with patient she will decide next visit. Return in 3 weeks OB check 09/28/25 -?-?-?-?-?-?-?-?-?-?-?-?- 31w 4d 87.317 kg 101/68 absent cephalic 30 145 active Reports good movement. Denies leaking, bleeding, contractions. Patient works at home for [employer]. She was very tearful and wanted to discuss her health prior to patient . Patient reports that in May she went to [place] to see [employer]/surgeon because she was not feeling right she was tired all the time she was gaining weight she just did not feel right. Lab work was done and the surgeon told her she was anemic so she received an iron transfusion. Patient then scheduled with her primary care here in [place] and labs were drawn. Her labs showed normal anemia workup and her CHEM panel was normal or her H&H was 11/32. So patient states she does not feel tired or weak but she still concerned that her hemoglobin is 10/29. Patient also was concerned that after her last baby she had problems with hemorrhoids and had to have one of them excised. And she did not want to go through hemorrhoid pain again. She also was concerned that she had a lot of discomfort because of an episiotomy and is requesting an elective . Hemoglobinopathy panel ordered. I scheduled patient with [employer] to discuss elective . Discussed comfort measures for hemorrhoids such as increased fiber, Tucks and I prescribed Proctosol that she could place twice daily. I asked her to make an appointment with her primary care about anemia and inform her primary care that I did order some lab work to check for hemoglobinopathies. Discussed labor precautions. Kick count. And Tdap today. I also discussed her 3-hour GTT there was 1 value that was high the others were at range. And I discussed diet and weight gain 10/13/25 -?-?-?-?-?-?-?-?-?-?-?-?- 33w 5d 89.414 kg 104/67 absent cephalic 34 155 active - She reports having had 2 ultrasounds during this , one at 19 weeks and another at 29 weeks, both showing her baby measuring in the 95th percentile. - The baby is measuring large not just i n weight but also in bone structure, particularly shoulders and stomach. - She passed the 3-hour glucose test, co nfirming no diabetes. - Her last delivery was vaginal with epi dural and she experienced a rough recovery due to episiotomy and hemorrhoids. - She reports current symptoms of nasal congestion and sore throat. - Her due date is November 26 based on last menstrual period and 19-week ultrasound. - Take Benefiber daily until delivery - Drink at least 32 ounces of water virgie y - Exercise with an exercise ball and do Kegel exercises to prepare for labor - Epidural is recommended - Ultrasound at 39 weeks to measure baby 's weight - Flu shot is recommended - For nasal congestion and sore throat, do steam inhalations and saline gargles - Avoid antibiotics if possible - Appointment with Nathalie in 2 weeks - Drop off forms at the front office - Discuss Hep B vaccine with pediatricia n after 10/26/25 -?-?-?-?-?-?-?-?-?-?-?-?- 35w 4d 89.925 kg 109/73 absent cephalic 35 155 active Constipation improving. Reports good movement. Movement is not as strong but it is as frequent. Complains of low pelvic pressure. Denies leaking or bleeding. And denies contractions Reviewed hem oglobinopathies. Discussed labor signs and symptoms and we discussed signs symptoms of preeclampsia. GBS today return in 2 weeks OB check Reviewed hemoglobinopathies. Discussed labor signs and symptoms and we discussed signs symptoms of preeclampsia. GBS today return in 2 weeks OB check. sono for growth NV Reviewed hemoglobinopathies. Discussed labor signs and symptoms and we discussed signs symptoms of preeclampsia. GBS today return in 2 weeks OB check. sono for growth NV. disability starts 10/27/25. last day to work 10/26/25 ARNEL Calculator Estimated Delivery Date Method Current WG Current Estimate 11/26/25 LMP (Certain) 35w 4d Other Estimates 11/26/25 Ultrasound #1 35w 4d 11/26/25 Manual 35w 4d final ARNEL: 11/26. EFW >99% Notes Visit Date: 10/26/25 Last Updated by: Nathalie Mishra CNM 3 hr gtt wnl Visit Date: 09/12/25 Last Updated by: Nathalie Mishra CNM 1hr gtt: 151. 09/12/25: herpes out break. start valtrex today, 3 hr gtt at MOB Visit Date: 07/24/25 Last Updated by: Nathalie Mishra CNM 07/24: FOB screen neg for cystic fibrosis carrier 07/24: Asthma, continue Singular and Claudette Visit Date: 05/24/25 Last Updated by: Nathalie Mishra CNM ob panel: AB+,abs-, rpr;;nr, rub imm, hbsag-,hiv-,hc-, GC/CT-. nipt-,sma/cf- Visit Date: 04/24/25 Last Updated by: Nathalie Mishra CNM 39 yo . LMP: 02/19/25. EDC 11/28/25 Office Procedures OBC Clinic LOC & Office Proc's Nursing/Assessment Patient Status: Established Patient OB Clinic Nursing Assessment: Medication Reconciliation, Update PMH in EMR and Vital Signs OB Clinic Coordination of Care: AMA, Complex Care and Chronic Disease 1-5, Consent,records obtained, informed consent, Education Simp Pt/Fam, 1 Ins Authorization, Lab and Imaging orders, Results/Orders obtained and Staff clarify orders Special Needs: Heart tones Miscellaneous Interventions: Pelvic Comp w/OB cult Established Patient Charge Established Patient Point Assignment: 185 Established Patient Point Charge: EP Level 5 (160-above) Assessment & Plan Diagnosis / Problem List (1) Encounter for supervision of high risk in third trimester, antepartum: Status: Acute Plan Sono next visit for growth. Discussed lab results. GBS today. Discussed labor. Kick count twice a day. And discussed preeclampsia signs symptoms return 2 weeks OB check Additional Plan Follow Up: 2 Weeks (obc)
[2025-10-26 10:14] VITALS: BP 109/73; PULSE 95; RESP 18; TEMP 36.3; O2SAT 97; BMI 31.8
== END 2025-10-26 10:55 | disposition home or self-care (01) ==
LOC: HODSOBC 09:56
PROVIDERS: Supervising Provider Advanced Practice Midwife; Visit Provider Advanced Practice Midwife
DX: O09.523 Supervision of elderly multigravida, third trimester (principal); Z36.85 Encounter for antenatal screening for Streptococcus B; Z3A.35 35 weeks gestation of pregnancy
CPT/HCPCS: 99215; G0463

== ENCOUNTER 2025-11-08 10:01 | Outpatient (AMB) | payer BC, SELFPAY ==
[2025-11-08 10:13] VITALS: BP 129/78; PULSE 101; RESP 18; TEMP 36.8; O2SAT 96; BMI 32.6
--- NOTE | 2025-11-08 10:13 | OBCLNT_ITS ---
Vital Signs 11/08/25 10:13 Height 1.68 m Height Method Stated Weight 92.193 kg Weight Measurement Method Standing Scale BMI 32.6 BP 129/78 Blood Pressure Source Automatic Cuff Blood Pressure Location Left Upper Arm Position Sitting Respiration 18 Pulse 101 H Pulse Source Monitor Temp 98.2 F Temp Source Oral Pulse Oximetry (%) 96 Oxygen Delivery Method Room Air Allergies/Home Meds Allergies & Medications Allergies No Known Allergies Allergy (Verified 11/08/25 10:14) Medication Reconciliation doxylamine 10 mg-pyridoxine (vit B6) 10 mg tablet,delayed release (Diclegis) 1 tab PO BID 30 days #60 tabs 04/24/25 [Rx Confirmed 11/08/25] ascorbic acid (vitamin C) 1,000 mg capsule 1,000 mg PO BID #60 caps 05/24/25 [Rx Confirmed 11/08/25] ferrous sulfate 325 mg (65 mg iron) tablet 325 mg PO BID #60 tabs 05/24/25 [Rx Confirmed 11/08/25] hydrocortisone 2.5 % topical cream with perineal applicator (Proctosol HC) 1 applic WI QD-BID PRN hemorrhoids #30 grams 09/28/25 [Rx Confirmed 11/08/25] Immunizations Immunizations Flu Vaccine in the Last 12 Months: No Flu Vaccine Exclusion Criteria: No Exclusion Criteria Care OB Visit Log OB Flowsheet Initial Weight: Not Recorded Date -?-?-?-?-?-?-?-?-?-?-?-?- EGA Weight BP Alb Glu CTX Pres Fundal ht FHR Mov Dilation Station Effacement Hx Notes Visit Note 04/24/25 -?-?-?-?-?-?-?--?-?-?-?-?- 9w 1d 78.528 kg 115/72 absent unknown 9 145 absent 39 yo . planned . denies SAB symptoms. + for AMA and advanced paternal age. c/o nausea, tired, no vag bleeding start diclegesis today. discomfort measure for nausea. discuss sab precaution. OB panel, NIPT and carrier screen, schedule MFM NT and anatomy screen. OBC 4 week start diclegesis today. disc omfort measure for nausea. discuss sab precaution. OB panel, NIPT and carrier screen, schedule MFM NT and anatomy screen. OBC 4 week. start baby aspirin nv 05/24/25 -?-?-?-?-?-?-?-?-?-?-?-?- 13w 3d 80.796 kg 120/70 absent unknown 13 156 absent feels tired. history of anemia, take iron 1 daily. no sab complaints. mfm appt, 07/04 discuss sab precaution. start iron bid with vitamin c, consider IV iron 2nd trimester, keep mfm appt 07/04. increase fluid, rtc 4 week obc 06/16/25 -?-?-?-?-?-?-?--?-?-?-?-?- 16w 5d 81.42 kg 107/69 absent unknown 16 147 absent last herpes outbreak 04/02. light fm, no VB,No ROM, NO bleeding. no active lesion. question about herpes. m 07/04 discuss +CF scr een, schedule genetic screen, advised FOB to get CF screen, start acyclovir at 36 week. vitamin C,Lysine and zinc to prevent outbreaks, discuss safe sex. patient will do AFP after insurance approval 07/24/25 -?-?-?-?-?-?-?-?-?-?-?-?- 22w 1d 84.935 kg 103/65 absent unknown 22 145 active Patient has concerns about driving 5 hours in 1 day. She reports that she drives back and forth to [facility] once a month for her child to see her father. She reports that during this time she has increased back strain and tiredness because of the drive. Reports movement. Denies leaking or bleeding. No contractions at this time but she does have second trimester discomforts. Her asthma is stable and she will continue with Claudette and her Singulair. Start acyclovir at 32 weeks. Discussed comfor t measures with patient. And I discussed self-help tips. Continue Claudette and Singulair for her asthma. Discussed sugary foods and sweets, diet and regular exercise. Patient has a follow-up ultrasound for growth in August. Discussed labor precautions. And third trimester labs next visit. Return in 4 weeks OB check 08/16/25 -?-?-?-?-?-?-?-?-?-?-?-?- 25w 3d 86.636 kg 113/72 absent unknown 25 145 active Patient has concerns about her blood pressure. She feels funny sometimes lightheaded so she has been checking her blood pressure at home for the last 5 days and she is concerned that it is low. Reports good movement. Denies contractions, bleeding, leaking Discussed blood pressure with patient. Discussed parameters with patient. Discussed ER precautions. Discussed comfort measures for ligament pain. Third trimester labs with CMP and A1c. Patient has a follow-up with maternal- medicine 11 3. Return in 4 weeks OB check 09/12/25 -?-?-?-?-?-?-?-?-?-?-?-?- 29w 2d 88.621 kg 115/70 absent cephalic 29 145 active MFM appointment today. Patient's 1 hour GTT was 151. Reports movement. Denies leaking bleeding or contractions. Patient reports increased stress at work due to a project she was working on. And that she is having a herpes breakout. She continues to take lysine vitamin C and zinc. Ordered 3-hour GTT. Hemoglobin A1c. Valtrex 500 p.o. twice daily. Discussed safe sex and condom use. Discussed labor precautions. I reviewed Tdap with patient she will decide next visit. Return in 3 weeks OB check 09/28/25 -?-?-?-?-?-?-?-?-?-?-?-?- 31w 4d 87.317 kg 101/68 absent cephalic 30 145 active Reports good movement. Denies leaking, bleeding, contractions. Patient works at home for [employer]. She was very tearful and wanted to discuss her health prior to patient . Patient reports that in May she went to [place] to see OB/G YN/surgeon because she was not feeling right she was tired all the time she was gaining weight she just did not feel right. Lab work was done and the surgeon told her she was anemic so she received an iron transfusion. Patient then scheduled with her primary care here in [place] and labs were drawn. Her labs showed normal anemia workup and her CHEM panel was normal or her H&H was 11/32. So patient states she does not feel tired or weak but she still concerned that her hemoglobin is 10/29. Patient also was concerned that after her last baby she had problems with hemorrhoids and had to have one of them excised. And she did not want to go through hemorrhoid pain again. She also was concerned that she had a lot of discomfort because of an episiotomy and is requesting an elective . Hemoglobinopathy panel ordered. I scheduled patient with [facility] to discuss elective . Discussed comfort measures for hemorrhoids such as increased fiber, Tucks and I prescribed Proctosol that she could place twice daily. I asked her to make an appointment with her primary care about anemia and inform her primary care that I did order some lab work to check for hemoglobinopathies. Discussed labor precautions. Kick count. And Tdap today. I also discussed her 3-hour GTT there was 1 value that was high the others were at range. And I discussed diet and weight gain 10/13/25 -?-?-?-?-?-?-?-?-?-?-?-?- 33w 5d 89.414 kg 104/67 absent cephalic 34 155 active - She reports having had 2 ultrasounds during this , one at 19 weeks and another at 29 weeks, both showing her baby measuring in the 95th percentile. - The baby is measuring large not just i n weight but also in bone structure, particularly shoulders and stomach. - She passed the 3-hour glucose test, co nfirming no diabetes. - Her last delivery was vaginal with epi dural and she experienced a rough recovery due to episiotomy and hemorrhoids. - She reports current symptoms of nasal congestion and sore throat. - Her due date is November 26 based on last menstrual period and 19-week ultrasound. - Take Benefiber daily until delivery - Drink at least 32 ounces of water virgie y - Exercise with an exercise ball and do Kegel exercises to prepare for labor - Epidural is recommended - Ultrasound at 39 weeks to measure baby 's weight - Flu shot is recommended - For nasal congestion and sore throat, do steam inhalations and saline gargles - Avoid antibiotics if possible - Appointment with Nathalie in 2 weeks - Drop off forms at the front office - Discuss Hep B vaccine with pediatricia n after 10/26/25 -?-?-?-?-?-?-?-?-?-?-?-?- 35w 4d 89.925 kg 109/73 absent cephalic 35 155 active Constipation improving. Reports good movement. Movement is not as strong but it is as frequent. Complains of low pelvic pressure. Denies leaking or bleeding. And denies contractions Reviewed hem oglobinopathies. Discussed labor signs and symptoms and we discussed signs symptoms of preeclampsia. GBS today return in 2 weeks OB check Reviewed hemoglobinopathies. Discussed labor signs and symptoms and we discussed signs symptoms of preeclampsia. GBS today return in 2 weeks OB check. sono for growth NV Reviewed hemoglobinopathies. Discussed labor signs and symptoms and we discussed signs symptoms of preeclampsia. GBS today return in 2 weeks OB check. sono for growth NV. disability starts 10/27/25. last day to work 10/26/25 11/08/25 -?-?-?-?-?-?-?-?-?-?-?-?- 37w 3d 92.193 kg 129/78 absent cephalic 37 155 active Reports good movement. Denies leaking, bleeding increased pressure and cervical pain. And denies contractions Discussed ep isiotomy and repair. Discussed epidural induction. Discussed labor precautions and kick count. And return in a week OB check ARNEL Calculator Estimated Delivery Date Method Current WG Current Estimate 11/26/25 LMP (Certain) 37w 3d Other Estimates 11/26/25 Ultrasound #1 37w 3d 11/26/25 Manual 37w 3d final ARNEL: 11/26. EFW >99% Notes Visit Date: 11/08/25 Last Updated by: Nathalie Mishra CNM 11/08:GBS- Visit Date: 10/26/25 Last Updated by: Nathalie Mishra CNM 3 hr gtt wnl Visit Date: 09/12/25 Last Updated by: Nathalie Mishra CNM 1hr gtt: 151. 09/12/25: herpes out break. start valtrex today, 3 hr gtt at MOB Visit Date: 07/24/25 Last Updated by: Nathalie Mishra CNM 07/24: FOB screen neg for cystic fibrosis carrier 07/24: Asthma, continue Singular and Claudette Visit Date: 05/24/25 Last Updated by: Nathalie Mishra CNM ob panel: AB+,abs-, rpr;;nr, rub imm, hbsag-,hiv-,hc-, GC/CT-. nipt-,sma/cf- Visit Date: 04/24/25 Last Updated by: Nathalie Mishra, GRACIE 39 yo . LMP: 02/19/25. EDC 11/28/25 Office Procedures OBC Clinic LOC & Office Proc's Nursing/Assessment Patient Status: Established Patient OB Clinic Nursing Assessment: Medication Reconciliation, Update PMH in EMR and Vital Signs OB Clinic Coordination of Care: Complex Care and Chronic Disease 1-5, Consent,records obtained, informed consent, Education Simp Pt/Fam, Lab and Imaging orders, Results/Orders obtained and Staff clarify orders Special Needs: Heart tones Established Patient Charge Established Patient Point Assignment: 135 Established Patient Point Charge: EP Level 4 (120-155) Assessment & Plan Diagnosis / Problem List (1) Encounter for supervision of high risk in third trimester, antepartum: Status: Acute Plan Labor precautions and kick count. Discussed induction of labor and epidural. We discussed episiotomy. Return in a week OB check Additional Plan Follow Up: 1 Week (obc)
== END 2025-11-08 10:59 | disposition home or self-care (01) ==
LOC: HODSOBC 10:01
PROVIDERS: Supervising Provider Advanced Practice Midwife; Visit Provider Advanced Practice Midwife
DX: O09.523 Supervision of elderly multigravida, third trimester (principal); Z3A.37 37 weeks gestation of pregnancy
CPT/HCPCS: 99214; G0463

== ENCOUNTER 2025-11-08 11:31 | Outpatient (CLI) | payer BC, SELFPAY ==
[2025-11-08] VITALS (9 sets, daily range): BP systolic 120; BP diastolic 66; PULSE 75–85; RESP 20–98; TEMP 36.7; O2SAT 97–98; BMI 32.9
--- NOTE | 2025-11-08 11:36 | XR_ITS ---
Study: Obstetric ultrasound equal to or greater than 14 weeks. INDICATION: Size versus date. Possible large for gestational age. TECHNIQUE: Grayscale ultrasound transabdominal with color flow Doppler. 48 images at 1213 hours 08 November 2025. FINDINGS: There is a montesinos intrauterine fetus in cephalic presentation. The four-chamber heart beats at 119/min. The placenta is grade 2 and posterior. There is no previa. A three-vessel cord insertion is noted. The amniotic fluid index measures 9.6 cm. The stomach, kidneys, bladder and spine are visualized. The spine is to the maternal left. The cervix measures 3.0 cm in length. Ovaries are not identified because of excessive bowel gas. The estimated weight of 3348 g +/- 496 g corresponds with approximately 7 pounds 6 ounces. IMPRESSION: Live intrauterine fetus of 38 weeks 0 days composite age with an estimated due date of November 22, 2025.
--- NOTE | 2025-11-08 11:36 | XR_ITS ---
Study: Biophysical profile. INDICATION: wellbeing. TECHNIQUE: Grayscale ultrasound with color flow Doppler. 323 images at 1221 hours 08 November 2025. FINDINGS: Biophysical profile scores of 2 are awarded for body movement, breathing motion, tone and quantitative amniotic fluid volume. The amniotic fluid index measures 10.0 cm. The heart rate is 124/min. IMPRESSION: Biophysical profile score 8/8.
== END 2025-11-08 12:56 | disposition home or self-care (01) ==
LOC: S4S1 11:32 → S4SX 11:32
PROVIDERS: Referring Provider Advanced Practice Midwife; Visit Provider Advanced Practice Midwife
DX: Z34.83 Encounter for supervision of other normal pregnancy, third trimester (principal); Z36.9 Encounter for antenatal screening, unspecified; Z3A.37 37 weeks gestation of pregnancy
CPT/HCPCS: 59025; 76805; 76819